=== PATIENT | male | born 1930 | race Caucasian/White ===

== ENCOUNTER 2017-10-21 17:25 | Inpatient (IN) | payer MEDICARE ==
[~2017-10-21] VITALS: Ht 167.6 cm; Wt 95.8 kg
--- NOTE | 2017-10-21 17:39 | ED.ADGEN ---
Past History Past Medical History: Dementia, Depression, Hypertension, Other Adult General Chief Complaint Chief Complaint " They sent me here to get checked out..." HPI HPI Patient is a 86 year old male transfer from [facility] an assisted living [facility], who presents with hx mental status change Pt. recent exacerbation of disruptive behavior, threatening self harm, increased confusion, attempted suicide by stings in PJ and hanging himself. Increase depressed affect. Pt. has hx of sleep apnea, HTN, DM II, Dementia. Pt. primary is Dr. Jennifer Bro. Pt. denies past hx. of. prior PR. Pt. recently had to give of his dog in the [facility] because of dog defecation and urine habits not compatible with [facility] standards. Patient reports is made him very unhappy and sad. No history of falls. No history of immunosuppression. No history of recent travel. No history of recent change in maintenance meds. Review of Systems Review of Systems Patient has no complaints Constitutional: Denies fever or chills [] Eyes: Denies change in visual acuity, redness, or eye pain [] HENT: Denies nasal congestion or sore throat [] Respiratory: Denies cough or shortness of breath [] Cardiovascular: No additional information not addressed in HPI [] GI: Denies abdominal pain, nausea, vomiting, bloody stools or diarrhea [] : Denies dysuria or hematuria [] Musculoskeletal: Denies back pain or joint pain [] Integument: Denies rash or skin lesions [] Neurologic: Denies headache, focal weakness or sensory changes [] Endocrine: Denies polyuria or polydipsia [] All other systems were reviewed and found to be within normal limits, except as documented in this note. Family History Family History Non-contributory Current Medications Current Medications See nursing for home meds Allergies Allergies No known allergies Physical Exam Physical Exam Constitutional: Well developed, well nourished, no acute distress, non-toxic appearance. [] HENT: Normocephalic, atraumatic, bilateral external ears normal, oropharynx moist, no oral exudates, nose normal. Trach scar Eyes: PERRLA, EOMI, conjunctiva normal, no discharge. [] Neck: Normal range of motion, no tenderness, supple, no stridor. [] Cardiovascular: Bradycardic Heart rate , occasionally missed or dropped beat and PAC as per monitor, no murmur [] Lungs & Thorax: Bilateral breath sounds equal at apexes on auscultation [] Abdomen: Bowel sounds normal, soft, no tenderness, no masses, no pulsatile masses. [] Skin: Warm, dry, no erythema, no rash. Contusion or skin ulcer right hancock Back: No tenderness, no CVA tenderness. [] Extremities: No tenderness, no cyanosis, no clubbing, ROM intact, no edema. Arthritic changes. Neurologic: Alert and oriented X 3, normal motor function, normal sensory function and feet, anxious no focal deficits noted. [] Psychologic: Affect normal, judgement, unable to determine at this time, mood depressed. Current Patient Data Vital Signs Vital Signs Date Time Temp Pulse Resp B/P (MAP) Pulse Ox O2 Delivery O2 Flow Rate FiO2 10/21/17 18:39 57 12 166/77 (106) 96 10/21/17 18:09 Room Air Lab Results Laboratory Tests Test 10/21/17 18:02 White Blood Count 3.5 x10^3/uL (4.0-11.0) L Red Blood Count 3.86 x10^6/uL (4.30-5.70) L Hemoglobin 12.6 g/dL (13.0-17.5) L Hematocrit 37.7 % (39.0-53.0) L Mean Corpuscular Volume 98 fL (79-100) Mean Corpuscular Hemoglobin 33 pg (25-35) Mean Corpuscular Hemoglobin Concent 34 g/dL (31-37) Red Cell Distribution Width 14.1 % (11.5-14.5) Platelet Count 80 x10^3/uL (140-400) L Neutrophils (%) (Auto) 60 % (31-73) Lymphocytes (%) (Auto) 22 % (24-48) L Monocytes (%) (Auto) 17 % (0-9) H Eosinophils (%) (Auto) 1 % (0-3) Basophils (%) (Auto) 0 % (0-3) Neutrophils # (Auto) 2.1 x10^3uL (1.8-7.7) Lymphocytes # (Auto) 0.8 x10^3/uL (1.0-4.8) L Monocytes # (Auto) 0.6 x10^3/uL (0.0-1.1) Eosinophils # (Auto) 0.0 x10^3/uL (0.0-0.7) Basophils # (Auto) 0.0 x10^3/uL (0.0-0.2) Platelet Estimate Decreased (ADEQUATE) Prothrombin Time 11.0 SEC (9.4-11.4) Prothrombin Time INR 1.1 (0.9-1.1) PTT 28 SEC (23-33) Sodium Level 147 mmol/L (136-145) H Potassium Level 4.2 mmol/L (3.5-5.1) Chloride Level 110 mmol/L (98-107) H Carbon Dioxide Level 30 mmol/L (21-32) Anion Gap 7 (6-14) Blood Urea Nitrogen 17 mg/dL (8-26) Creatinine 1.3 mg/dL (0.7-1.3) Estimated GFR (Cockcroft-Gault) 52.3 Glucose Level 99 mg/dL (70-99) Calcium Level 8.6 mg/dL (8.5-10.1) Magnesium Level 1.9 mg/dL (1.8-2.4) Creatine Kinase 844 U/L (39-308) H Troponin I Quantitative 0.341 ng/mL (0-0.055) H XE-Rvg-M-Type Natriuretic Peptide 928 pg/mL (0-449) H EKG EKG My interpretation EKG shows a sinus bradycardia with occasional PAC. Sinus rate at 54. Some nonspecific anterior septal changes but no findings acute STEMI of contralateral changes.[] Radiology/Procedures Radiology/Procedures I interpretation of chest x-ray shows no acute cardiopulmonary changes. Degenerative joint changes.[] Course & Med Decision Making Course & Med Decision Making Pertinent Labs and Imaging studies reviewed. (See chart for details). Discussed presentation, testing and treatment plan with Dr. Quinones hospitalist and cardiology.. Patient to be admitted to telemetry tonight with serial troponins. And cardiology consult. Clearing of troponin or establish has stable cardiac presentation he'll be transferred to [facility] under . [] Final Impression Final Impression 1. Mental Status Change 2. Behavior 3. Dementia 4,. Depression 5. Suicidal Ideation 6. Anemia , Leukopenia, Thrombocytopenia- 7. Elevated Trop. 8. Bradycardia Problems: Dragon Disclaimer Dragon Disclaimer This electronic medical record was generated, in whole or in part, using a voice recognition dictation system. BAHMAN MEZA MD Oct 21, 2017 17:39
--- NOTE | 2017-10-21 18:27 | EKG ---
[address] [address] Test Date: 2017-10-21 Test Time: 17:53:15 Pat Name: IVETH GALVAN Department: Room: Gender: M [employer] Crib Attendant: ROJELIO : 1930 Requested By: BAHMAN MEZA Order Number: [id number] Reading MD: Fransisco Samson Measurements Intervals [place] Rate: 54 P: OR: QRS: 23 QRSD: 104 T: 30 QT: 422 QTc: 402 Interpretive Statements SINUS RHYTHM ATRIAL PREMATURE COMPLEXES QRS(T) CONTOUR ABNORMALITY CONSIDER ANTEROSEPTAL MYOCARDIAL DAMAGE POSSIBLY ABNORMAL ECG Electronically Signed On 10-27-2017 14:38:59 RENTAL CAR DELIVERER by Fransisco Samson
[2017-10-21 18:30] LABS: BASO % 0 % (0-3); EOS % 1 % (0-3); HEMATOCRIT 37.7 % (39.0-53.0); HEMOGLOBIN 12.6 g/dL (13.0-17.5); LYMPH # 0.8 x10^3/uL (1.0-4.8); LYMPH % 22 % (24-48); MEAN CORPUSCULAR HEMOGLOBIN 33 pg (25-35); MEAN CORPUSCULAR HGB CONC 34 g/dL (31-37); MEAN CORPUSCULAR VOLUME 98 fL (79-100); MONO # 0.6 x10^3/uL (0.0-1.1); MONO % 17 % (0-9); NEUT # 2.1 x10^3uL (1.8-7.7); NEUT % 60 % (31-73); PLATELET COUNT 80 x10^3/uL (140-400); RED BLOOD COUNT 3.86 x10^6/uL (4.30-5.70); RED CELL DISTRIBUTION WIDTH 14.1 % (11.5-14.5); WHITE BLOOD COUNT 3.5 x10^3/uL (4.0-11.0)
[2017-10-21 18:49] LABS: CALCIUM 8.6 mg/dL (8.5-10.1); CREATININE 1.3 mg/dL (0.7-1.3); GFR 52.3; MAGNESIUM 1.9 mg/dL (1.8-2.4); POTASSIUM 4.2 mmol/L (3.5-5.1)
[2017-10-21] MEDS ORDERED: NITROGLYCERIN OINT 1 GM PACKET. TP ONE (19:15)
[2017-10-21 20:14] VITALS: BP 171/81
[2017-10-21] MEDS ORDERED: FOSI40TA PO (21:13)
[2017-10-21] MEDS ORDERED: GABA600T2 PO (21:13)
[2017-10-21] MEDS ORDERED: GLIP5TAB10 PO (21:13)
[2017-10-21] MEDS ORDERED: DONE10TA7 PO (21:13)
[2017-10-21] MEDS ORDERED: ZOLPIDEM 5 MG TABLET. PO PRN (21:30)
[2017-10-21] MEDS: GABAPENTIN 300 MG CAPSULE. PO SCH (21:39)
[2017-10-21 22:19] LABS: PLT ESTIMATE DECREASED (ADEQUATE)
[2017-10-21 23:01] VITALS: BP 135/63
[2017-10-22 05:02] VITALS: BP 129/67
[2017-10-22 05:02] LABS: BARBITURATES NEG (NEG); BENZODIAZEPINES NEG (NEG); CANNABINOIDS NEG (NEG); COCAINE NEG (NEG); METHADONE NEG (NEG); OPIATES NEG (NEG); PHENCYCLIDINE NEG (NEG)
[2017-10-22 05:03] LABS: BACTERIA,URINE 0 /HPF (0-FEW); BILIRUBIN,URINE NEG (NEG); CLARITY,URINE CLEAR; COLOR,URINE YELLOW; GLUCOSE,URINE NEG (NEG); NITRITE,URINE NEG (NEG); SQUAMOUS EPITHELIAL CELL,UR OCC /LPF; UROBILINOGEN,URINE 0.2 mg/dL (0.2 mg/dL); WBC,URINE OCC /HPF (0-4)
[2017-10-22 05:04] LABS: AMPHETAMINE/METHAMPHETAMINE NEG (NEG)
[2017-10-22] MEDS: NITROGLYCERIN OINT 1 GM PACKET. TP SCH ×3 (05:40→22:00)
[2017-10-22 07:09] LABS: BASO % 0 % (0-3); EOS % 1 % (0-3); HEMATOCRIT 35.5 % (39.0-53.0); HEMOGLOBIN 11.8 g/dL (13.0-17.5); LYMPH % 32 % (24-48); MEAN CORPUSCULAR HEMOGLOBIN 33 pg (25-35); MEAN CORPUSCULAR HGB CONC 33 g/dL (31-37); MEAN CORPUSCULAR VOLUME 98 fL (79-100); MONO # 0.5 x10^3/uL (0.0-1.1); MONO % 18 % (0-9); NEUT # 1.5 x10^3uL (1.8-7.7); NEUT % 49 % (31-73); PLATELET COUNT 72 x10^3/uL (140-400); RED BLOOD COUNT 3.62 x10^6/uL (4.30-5.70); RED CELL DISTRIBUTION WIDTH 14.3 % (11.5-14.5)
[2017-10-22 07:14] LABS: ALBUMIN 2.9 g/dL (3.4-5.0); ALBUMIN/GLOBULIN RATIO 1.2 (1.0-1.7); CREATININE 1.3 mg/dL (0.7-1.3); GFR 52.3; MAGNESIUM 1.8 mg/dL (1.8-2.4); POTASSIUM 4.1 mmol/L (3.5-5.1); TOTAL BILIRUBIN 0.3 mg/dL (0.2-1.0); TOTAL PROTEIN 5.3 g/dL (6.4-8.2)
--- NOTE | 2017-10-22 08:15 | RAD ---
PORTABLE CHEST 1V Clinical Indication: Mental Status Change Comparison: None. Findings: Normal lung volume. No focal consolidations. Normal pulmonary vasculature. No pleural effusion or pneumothorax. The cardiomediastinal silhouette and great vessels are normal. No acute osseous abnormality. Advanced bilateral acromioclavicular and glenohumeral joint arthrosis. IMPRESSION: No acute cardiopulmonary process.
[2017-10-22] MEDS ORDERED: DONEPEZIL HCL 10 MG TABLET PO SCH (09:00)
[2017-10-22] MEDS ORDERED: LISINOPRIL 20 MG TABLET PO SCH (09:00)
[2017-10-22] MEDS ORDERED: FLU VACC QS2017-18 (36MOS+)/PF 0.5 ML SYRINGE. VAX IM ONE (09:00)
[2017-10-22] MEDS: ASPIRIN 81 MG TAB.CHEW PO SCH (09:35)
[2017-10-22] MEDS: glipiZIDE 5 MG TABLET PO SCH ×2 (09:40→20:36)
[2017-10-22 11:21] VITALS: BP 152/70
--- NOTE | 2017-10-22 14:23 | PDOC2 ---
KINGSTONALL[facility] Candy MANAGER RESORT 10/22/17 1423: CONSULT Date of Admission DATE: 10/22/17 TIME: 13:19 Reason for Consult: trop elevation Problem List Problems Medical Problems: (1) Elevated troponin Status: Acute History of Present Illness Patient is a 86 year old male who transferred from [facility] living for [facility] admission. He was evaluated medically in the ED and found to have an elevated troponin so consult was called. Based on the chart history he has been having symptoms of confusion and suicidal ideation. He is currently pleasantly confused and oriented only to self and year. He is unable to give medical history other than saying he had brain surgery in the 50s. He denies any chest pain or discomfort. He denies any dyspnea. He complains of a "hoarse throat" since admission. He denies any palpitations, lightheadedness or presyncope symptoms. Limited medical history obtained from [facility] intake history and ED notes. He had apparently been in the assisted living facility less than 1 month and prior to that was living in his home in [place]. Past Medical History DESTIN, unspecified dementia, diabetes mellitus II, hypertension, hyperlipidemia Past Surgical History He reports remote brain surgery but is unable to articulate why this was done, other surgical history unavailable. Family History non contributory due to age Social History non smoker, ETOH / drug use unknown. Current Medications Current Medications Nitroglycerin (Nitro-Bid Oint) 0.5 inch 1X ONCE TP Last administered on 19:34; Start 10/21/17 at 19:15; Stop 10/21/17 at 19:16; Status DC Aspirin (Children'S Aspirin) 81 mg DAILYWBKFT PO Last administered on 09:35; Start 10/22/17 at 08:00 Nitroglycerin (Nitro-Bid Oint) 0.5 inch Q8HRS TP ; Start 10/22/17 at 06:00 Zolpidem Tartrate (Ambien) 5 mg PRN QHS PRN PO INSOMNIA, MAY REPEAT IN 1HR; Start 10/21/17 at 21:30; Stop 10/22/17 at 07:25; Status DC Olanzapine (ZyPREXA ZYDIS) 2.5 mg PRN Q2HR PRN PO AGITATION/ REPEAT 1X Last administered on 10/21/17 21:39; Start 10/21/17 at 21:30 Donepezil HCl (Aricept) 10 mg DAILY PO Last administered on 10/22/17 09:36; Start 10/22/17 at 09:00 Glipizide (Glucotrol) 2.5 mg BID PO Last administered on 10/22/17 09:40; Start 10/22/17 at 09:00 Lisinopril (Prinivil) 40 mg DAILY PO Last administered on 10/22/17 09:37; Start 10/22/17 at 09:00 Gabapentin (Neurontin) 600 mg QHS PO Last administered on 10/21/17 21:39; Start 10/21/17 at 21:45 Influenza Virus Vaccine Quadrival (Fluarix Quad [id number] Syringe) 0.5 ml ONCE ONCE VAX IM ; Start 10/22/17 at 09:00; Stop 10/22/17 at 09:01; Status DC Active Scripts Active Reported Glipizide 5 Mg Tablet 2.5 Mg PO BID Gabapentin 600 Mg Tablet 600 Mg PO HS Fosinopril Sodium 40 Mg Tablet 40 Mg PO DAILY Donepezil Hcl 10 Mg Tablet 10 Mg PO DAILY Allergies: Coded Allergies: amlodipine (Verified Allergy, Unknown, 10/21/17) fluorouracil (Verified Allergy, Unknown, 10/21/17) iodine (Verified Allergy, Unknown, 10/21/17) lovastatin (Verified Allergy, Unknown, 10/21/17) metoprolol (Verified Allergy, Unknown, 10/21/17) rosuvastatin (Verified Allergy, Unknown, 10/21/17) simvastatin (Verified Allergy, Unknown, 10/21/17) Review of System He denies any complaints. Otherwise as per HPI. General: Alert, Cooperative, No acute distress, Other (oriented x2) HEENT: Atraumatic, EOMI, Mucous membr. moist/pink, Other (left carotid bruit) Lungs: Clear to auscultation Heart: Regular rate, Normal S1, Normal S2, Other (+ systolic murmur) Abdomen: Normal bowel sounds, Soft, No tenderness Extremities: No cyanosis, No edema, Other (palpable bilateral pedal pulses) Neuro: Normal speech, Strength at 5/5 X4 ext Psych/Mental Status: Mood NL, Other (mental status as described above) VITALS Vital Signs Date Time Temp Pulse Resp B/P (MAP) Pulse Ox O2 Delivery O2 Flow Rate FiO2 10/22/17 11:21 98.0 50 20 152/70 (97) 100 Nasal Cannula 2.0 Labs Laboratory Tests Test 10/21/17 18:02 10/21/17 23:59 10/22/17 04:45 10/22/17 06:46 White Blood Count 3.5 x10^3/uL (4.0-11.0) 3.0 x10^3/uL (4.0-11.0) Red Blood Count 3.86 x10^6/uL (4.30-5.70) 3.62 x10^6/uL (4.30-5.70) Hemoglobin 12.6 g/dL (13.0-17.5) 11.8 g/dL (13.0-17.5) Hematocrit 37.7 % (39.0-53.0) 35.5 % (39.0-53.0) Mean Corpuscular Volume 98 fL (79-100) 98 fL (79-100) Mean Corpuscular Hemoglobin 33 pg (25-35) 33 pg (25-35) Mean Corpuscular Hemoglobin Concent 34 g/dL (31-37) 33 g/dL (31-37) Red Cell Distribution Width 14.1 % (11.5-14.5) 14.3 % (11.5-14.5) Platelet Count 80 x10^3/uL (140-400) 72 x10^3/uL (140-400) Neutrophils (%) (Auto) 60 % (31-73) 49 % (31-73) Lymphocytes (%) (Auto) 22 % (24-48) 32 % (24-48) Monocytes (%) (Auto) 17 % (0-9) 18 % (0-9) Eosinophils (%) (Auto) 1 % (0-3) 1 % (0-3) Basophils (%) (Auto) 0 % (0-3) 0 % (0-3) Neutrophils # (Auto) 2.1 x10^3uL (1.8-7.7) 1.5 x10^3uL (1.8-7.7) Lymphocytes # (Auto) 0.8 x10^3/uL (1.0-4.8) 1.0 x10^3/uL (1.0-4.8) Monocytes # (Auto) 0.6 x10^3/uL (0.0-1.1) 0.5 x10^3/uL (0.0-1.1) Eosinophils # (Auto) 0.0 x10^3/uL (0.0-0.7) 0.0 x10^3/uL (0.0-0.7) Basophils # (Auto) 0.0 x10^3/uL (0.0-0.2) 0.0 x10^3/uL (0.0-0.2) Platelet Estimate Decreased (ADEQUATE) Prothrombin Time 11.0 SEC (9.4-11.4) Prothromb Time International Ratio 1.1 (0.9-1.1) Activated Partial Thromboplast Time 28 SEC (23-33) Sodium Level 147 mmol/L (136-145) 146 mmol/L (136-145) Potassium Level 4.2 mmol/L (3.5-5.1) 4.1 mmol/L (3.5-5.1) Chloride Level 110 mmol/L (98-107) 111 mmol/L (98-107) Carbon Dioxide Level 30 mmol/L (21-32) 31 mmol/L (21-32) Anion Gap 7 (6-14) 4 (6-14) Blood Urea Nitrogen 17 mg/dL (8-26) 16 mg/dL (8-26) Creatinine 1.3 mg/dL (0.7-1.3) 1.3 mg/dL (0.7-1.3) Estimated GFR (Cockcroft-Gault) 52.3 52.3 Glucose Level 99 mg/dL (70-99) 111 mg/dL (70-99) Calcium Level 8.6 mg/dL (8.5-10.1) 8.0 mg/dL (8.5-10.1) Magnesium Level 1.9 mg/dL (1.8-2.4) 1.8 mg/dL (1.8-2.4) Creatine Kinase 844 U/L (39-308) 649 U/L (39-308) 551 U/L (39-308) Troponin I Quantitative 0.341 ng/mL (0-0.055) 0.317 ng/mL (0-0.055) 0.243 ng/mL (0-0.055) ME-Gtx-X-Type Natriuretic Peptide 928 pg/mL (0-449) Creatine Kinase MB (Mass) 8.9 ng/mL (0.0-3.6) 5.8 ng/mL (0.0-3.6) Creatine Kinase MB Relative Index 1.4 % (0-4) 1.1 % (0-4) Urine Collection Type Unknown Urine Color Yellow Urine Clarity Clear Urine pH 5.5 Urine Specific [place] 1.020 Urine Protein 30 mg/dl (NEG-TRACE) Urine Glucose (UA) Neg mg/dL (NEG) Urine Ketones (Stick) Neg mg/dL (NEG) Urine Blood Neg (NEG) Urine Nitrite Neg (NEG) Urine Bilirubin Neg (NEG) Urine Urobilinogen Dipstick 0.2 mg/dL (0.2 mg/dL) Urine Leukocyte Esterase Neg (NEG) Urine RBC 1-2 /HPF (0-2) Urine WBC Occ /HPF (0-4) Urine Squamous Epithelial Cells Occ /LPF Urine Bacteria 0 /HPF (0-FEW) Urine Opiates Screen Neg (NEG) Urine Methadone Screen Neg (NEG) Urine Barbiturates Neg (NEG) Urine Phencyclidine Screen Neg (NEG) Urine Amphetamine/Methamphetamine Neg (NEG) Urine Benzodiazepines Screen Neg (NEG) Urine Cocaine Screen Neg (NEG) Urine Cannabinoids Screen Neg (NEG) Urine Ethyl Alcohol Neg (NEG) BUN/Creatinine Ratio 12 (6-20) Total Bilirubin 0.3 mg/dL (0.2-1.0) Aspartate Amino Transf (AST/SGOT) 38 U/L (15-37) Alanine Aminotransferase (ALT/SGPT) 32 U/L (16-63) Alkaline Phosphatase 65 U/L (46-116) Total Protein 5.3 g/dL (6.4-8.2) Albumin 2.9 g/dL (3.4-5.0) Albumin/Globulin Ratio 1.2 (1.0-1.7) Test 10/22/17 07:40 10/22/17 11:29 Glucose (Fingerstick) 103 mg/dL (70-99) 112 mg/dL (70-99) Images EKG - sinus rhythm without acute abnormalities CXR - IMPRESSION: No acute cardiopulmonary process. Assessment/Plan 1. NSTEMI - He is currently asymptomatic. Will request PCP records from [facility] and have asked nursing to touch base with DPOA as to baseline mental status, functionality, and care wishes. Currently would recommend echo to evaluate LV function, medical therapy and supportive care. No beta blockers due to bradycardia. 2. hypertension - Continue home medications. 3. pancytopenia - request hematology records from [facility] prior to starting antiplatelet therapy. 4. hyperlipidemia - check lipids, continue statin 5. diabetes mellitus - as per IM 6. dementia / SI - per Psych. Problems: AZRA CERNA MD 10/22/17 1604: CONSULT Allergies: Coded Allergies: amlodipine (Verified Allergy, Unknown, 10/21/17) fluorouracil (Verified Allergy, Unknown, 10/21/17) iodine (Verified Allergy, Unknown, 10/21/17) lovastatin (Verified Allergy, Unknown, 10/21/17) metoprolol (Verified Allergy, Unknown, 10/21/17) rosuvastatin (Verified Allergy, Unknown, 10/21/17) simvastatin (Verified Allergy, Unknown, 10/21/17) Assessment/Plan Pt. seen and examined. Agree with above CORE CLEANER note. Will obtain echo and if wnl, then supportive care. THanks. Problems: ALLISON ONOFRE APRN Oct 22, 2017 14:23 AZRA CERNA MD Oct 22, 2017 16:04
[2017-10-22 14:47] VITALS: BP 147/67
--- NOTE | 2017-10-22 16:57 | CARD ---
APPROVED REPORT EXAM: Two-dimensional and M-mode echocardiogram with Doppler and color Doppler. Other Information Quality : Average Rhythm : NSR INDICATION Elevated troponin level 2D DIMENSIONS Left Atrium(2D)2.8 (1.6-4.0cm)IVSd1.2 (0.7-1.1cm) Aortic Root(2D)3.4 (2.0-3.7cm)LVDd5.3 (3.9-5.9cm) LVOT Diameter2.1 (1.8-2.4cm)PWd1.3 (0.7-1.1cm) LVDs3.4 (2.5-4.0cm)FS (%) 35.7 % SV87.6 mlLVEF(%)64.7 (>50%) Aortic Valve AoV Peak Michael.262.7cm/sAoV VTI58.3cm AO Peak GR.27.6mmHgLVOT Peak Michael.131.5cm/s LVOT VTI 29.56cmAO Mean GR.17mmHg CAROLINE (VMAX)1.09zh8MSJ (VTI)1.82cm2 AI P 1/2 [id number] Mitral Valve MV E Loctxtle37.5cm/sMV DECEL YEZV275vq MV A Wayavndz89.7cm/sMV ZNA47ql E/A Ratio1.1MV A Eqtrjdrb423op MVA (PHT)4.14cm2 Tricuspid Valve TR P. Xlaaypjt670ah/sRAP FGOWPVEJ7htWr TR Peak Gr.39wtIgXFIZ55onCh LEFT VENTRICLE The left ventricle is normal size. There is borderline to mild concentric left ventricular hypertroph y. Left ventricle systolic function is normal. The Ejection Fraction is 60-65%. There is normal LV se gmental wall motion. The left ventricular diastolic function and filling is normal for age. RIGHT VENTRICLE The right ventricle is normal size. The right ventricular systolic function is normal. ATRIA The left atrium size is normal. The right atrium size is normal. The interatrial septum is intact wit h no evidence for an atrial septal defect or patent foramen ovale as noted on 2-D or Doppler imaging. AORTIC VALVE The aortic valve is moderately calcified. The aortic valve is trileaflet. Doppler and Color Flow reve aled mild aortic regurgitation. Calculated aortic valve area is 1.8 cm2 with maximum pressure gradien t of 27 mmHg and mean pressure gradient of 18 mmHg. Doppler and color-flow analysis revealed mild aor tic stenosis. MITRAL VALVE Mitral annular calcification is mild. There is no mitral valve stenosis. Doppler and Color Flow revea led no mitral valve regurgitation noted. TRICUSPID VALVE The tricuspid valve is normal in structure and function. Doppler and Color Flow revealed mild tricusp id regurgitation. The PA pressure was estimated at 36 mmHg. There is no tricuspid valve stenosis. PULMONIC VALVE The pulmonic valve is not well visualized. Doppler and Color Flow revealed no pulmonic valvular regur gitation. There is no pulmonic valvular stenosis. GREAT VESSELS The aortic root is normal in size. Pulmonary veins not recorded. The IVC is slightly dilated in size and collapses >50% with inspiration. PERICARDIAL EFFUSION There is no evidence of significant pericardial effusion. Critical Notification Critical Value: No <Conclusion> Left ventricle systolic function is normal. The Ejection Fraction is 60-65%. There is normal LV segmental wall motion. Calculated aortic valve area is 1.8 cm2 with maximum pressure gradient of 27 mmHg and mean pressure g radient of 18 mmHg. Doppler and color-flow analysis revealed mild aortic stenosis.
--- NOTE | 2017-10-22 17:31 | HP ---
ADMIT DATE: 10/21/2017 REASON FOR ADMISSION: Elevated troponin, thrombocytopenia, abnormal labs. HISTORY OF PRESENT ILLNESS: This is at the moment pleasant 86-year-old male who knew his birthdate, who was supposed to be [facility]. He came from [facility] where he has been since 10/06/2017. Before that, he was at home in [place]. This is an assisted living facility. Apparently, since he has moved in, he has threatened to harm himself, suicidal ideation. He tried his PJ strings around his neck and wanted to poison himself; in other words, he has severe adjustment problems going into assisted living facility. PAST MEDICAL HISTORY: Obstructive sleep apnea, type 2 diabetes, suspected dementia, hypertension, depression, chronic pain. ALLERGIES: AMLODIPINE, 5-FU, IODINE, LOVASTATIN, METOPROLOL, ROSUVASTATIN and SIMVASTATIN. MEDICATIONS: Reviewed, not clear how long he has been, needs as they were dated 10/06/2017. SOCIAL HISTORY: The patient is a retired stern. Since childhood, he hurt his third finger on the left hand, which was caught in a corn machine, it was repaired. He does not know his history. As far as social goes, he grew up in [place], [place]. He is a of the [employer]. 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 REVIEW OF SYSTEMS: He does not state anything in particular that it is bothering him, but there is something that is bothering him like that. He wants to talk about at length. OBJECTIVE: VITAL SIGNS: Height 66 inches, weight 214 pounds, blood pressure 147/67, pulse 63, respirations 20, O2 sat 100% on 2 liters. GENERAL: At the present time, this is a pleasant elderly gentleman, in no acute distress. He is sitting in bed. His skin is aged with actinic keratosis on the top of his scalp. HEENT: His eyes were clear, evidence of cataract surgery bilaterally. Nose patent. Throat clear. NECK: Supple, without adenopathy. There were no carotid bruits. LUNGS: Clear to auscultation. CARDIOVASCULAR: Slightly irregular rhythm and rate. ABDOMEN: Soft, nontender. EXTREMITIES: Without edema. 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 NEUROLOGIC: He can follow directions. Cranial nerves were intact. He could do avvtqu-pr-bibx, but slow, rapid alternating movement he can do. Photographic Restorer strength is equal and strong. Lower extremities are strong and muscular. Reflexes not checked. LABORATORY DATA: CBC: White blood cell count is 3.0, hemoglobin 11.8, hematocrit 35.5, platelet count 72,000. Troponin initially 0.341; now, it is 0.243. His CK was 844. Blood sugars are okay, it is slightly elevated. Sodium of 147. ASSESSMENT: 1. An 86-year-old male with neurocognitive impairment and suicidal ideation. 2. Actinic keratosis. 3. Mildly elevated CK, questionable etiology. 4. Elevated troponin. The patient does not have any chest pain, Cardiology is seeing. 5. Pancytopenia, questionable etiology. He himself is not aware of any blood disorder and pharmacy queried the medications that are very rare instances. Other labs are pending and we will monitor his labs an additional day, move him close to the nurse's station as he has suicidal ideation, although he does not exhibit any at the present time. FRANCISCO CASTRO DO DR: DIANE/aristides JOB#: [id number] / [id number]
--- NOTE | 2017-10-22 18:43 | PDOC ---
Exam Note: Jose Angel Note: Please also refer to the separate dictated note~for this date of service dictated separately.~Patient seen individually. Discussed the patient with Nursing staff reviewed the chart.~Reviewed interim history and current functioning. Reviewed vital signs,~Labs/ Radiology~and current medications noted below. Continue current treatment with the changes noted in the dictated addendum note Assessment: Vital Signs: Vital Signs Date Time Temp Pulse Resp B/P (MAP) Pulse Ox O2 Delivery O2 Flow Rate FiO2 10/22/17 15:19 63 147/67 10/22/17 14:47 97.8 20 95 Room Air 10/22/17 11:21 2.0 I&O Intake and Output 10/22/17 07:00 Intake Total 400 ml Output Total 600 ml Balance -200 ml Intake Oral 400 ml Output Urine Total 600 ml # Bowel Movements 1 Labs: Laboratory Tests Test 10/21/17 23:59 10/22/17 04:45 10/22/17 06:46 10/22/17 07:40 Creatine Kinase 649 U/L (39-308) H 551 U/L (39-308) H Creatine Kinase MB (Mass) 8.9 ng/mL (0.0-3.6) H 5.8 ng/mL (0.0-3.6) H Creatine Kinase MB Relative Index 1.4 % (0-4) 1.1 % (0-4) Troponin I Quantitative 0.317 ng/mL (0-0.055) H 0.243 ng/mL (0-0.055) H Urine Collection Type Unknown Urine Color Yellow Urine Clarity Clear Urine pH 5.5 Urine Specific [place] 1.020 Urine Protein 30 mg/dl (NEG-TRACE) Urine Glucose (UA) Neg mg/dL (NEG) Urine Ketones (Stick) Neg mg/dL (NEG) Urine Blood Neg (NEG) Urine Nitrite Neg (NEG) Urine Bilirubin Neg (NEG) Urine Urobilinogen Dipstick 0.2 mg/dL (0.2 mg/dL) Urine Leukocyte Esterase Neg (NEG) Urine RBC 1-2 /HPF (0-2) Urine WBC Occ /HPF (0-4) Urine Squamous Epithelial Cells Occ /LPF Urine Bacteria 0 /HPF (0-FEW) Urine Opiates Screen Neg (NEG) Urine Methadone Screen Neg (NEG) Urine Barbiturates Neg (NEG) Urine Phencyclidine Screen Neg (NEG) Urine Amphetamine/Methamphetamine Neg (NEG) Urine Benzodiazepines Screen Neg (NEG) Urine Cocaine Screen Neg (NEG) Urine Cannabinoids Screen Neg (NEG) Urine Ethyl Alcohol Neg (NEG) White Blood Count 3.0 x10^3/uL (4.0-11.0) L Red Blood Count 3.62 x10^6/uL (4.30-5.70) L Hemoglobin 11.8 g/dL (13.0-17.5) L Hematocrit 35.5 % (39.0-53.0) L Mean Corpuscular Volume 98 fL (79-100) Mean Corpuscular Hemoglobin 33 pg (25-35) Mean Corpuscular Hemoglobin Concent 33 g/dL (31-37) Red Cell Distribution Width 14.3 % (11.5-14.5) Platelet Count 72 x10^3/uL (140-400) L Neutrophils (%) (Auto) 49 % (31-73) Lymphocytes (%) (Auto) 32 % (24-48) Monocytes (%) (Auto) 18 % (0-9) H Eosinophils (%) (Auto) 1 % (0-3) Basophils (%) (Auto) 0 % (0-3) Neutrophils # (Auto) 1.5 x10^3uL (1.8-7.7) L Lymphocytes # (Auto) 1.0 x10^3/uL (1.0-4.8) Monocytes # (Auto) 0.5 x10^3/uL (0.0-1.1) Eosinophils # (Auto) 0.0 x10^3/uL (0.0-0.7) Basophils # (Auto) 0.0 x10^3/uL (0.0-0.2) Sodium Level 146 mmol/L (136-145) H Potassium Level 4.1 mmol/L (3.5-5.1) Chloride Level 111 mmol/L (98-107) H Carbon Dioxide Level 31 mmol/L (21-32) Anion Gap 4 (6-14) L Blood Urea Nitrogen 16 mg/dL (8-26) Creatinine 1.3 mg/dL (0.7-1.3) Estimated GFR (Cockcroft-Gault) 52.3 BUN/Creatinine Ratio 12 (6-20) Glucose Level 111 mg/dL (70-99) H Calcium Level 8.0 mg/dL (8.5-10.1) L Magnesium Level 1.8 mg/dL (1.8-2.4) Total Bilirubin 0.3 mg/dL (0.2-1.0) Aspartate Amino Transferase (AST) 38 U/L (15-37) H Alanine Aminotransferase (ALT) 32 U/L (16-63) Alkaline Phosphatase 65 U/L (46-116) Total Protein 5.3 g/dL (6.4-8.2) L Albumin 2.9 g/dL (3.4-5.0) L Albumin/Globulin Ratio 1.2 (1.0-1.7) Glucose (Fingerstick) 103 mg/dL (70-99) H Test 10/22/17 1110/22/17 16:40 Glucose (Fingerstick) 112 mg/dL (70-99) H 110 mg/dL (70-99) H Current Medications: Meds: Current Medications Nitroglycerin (Nitro-Bid Oint) 0.5 inch 1X ONCE TP Last administered on 19:34; Start 10/21/17 at 19:15; Stop 10/21/17 at 19:16; Status DC Aspirin (Children'S Aspirin) 81 mg DAILYWBKFT PO Last administered on 09:35; Start 10/22/17 at 08:00 Nitroglycerin (Nitro-Bid Oint) 0.5 inch Q8HRS TP Last administered on 15:19; Start 10/22/17 at 06:00 Zolpidem Tartrate (Ambien) 5 mg PRN QHS PRN PO INSOMNIA, MAY REPEAT IN 1HR; Start 10/21/17 at 21:30; Stop 10/22/17 at 07:25; Status DC Olanzapine (ZyPREXA ZYDIS) 2.5 mg PRN Q2HR PRN PO AGITATION/ REPEAT 1X Last administered on 10/21/17 21:39; Start 10/21/17 at 21:30 Donepezil HCl (Aricept) 10 mg DAILY PO Last administered on 10/22/17 09:36; Start 10/22/17 at 09:00 Glipizide (Glucotrol) 2.5 mg BID PO Last administered on 10/22/17 09:40; Start 10/22/17 at 09:00 Lisinopril (Prinivil) 40 mg DAILY PO Last administered on 10/22/17 09:37; Start 10/22/17 at 09:00 Gabapentin (Neurontin) 600 mg QHS PO Last administered on 10/21/17 21:39; Start 10/21/17 at 21:45 Influenza Virus Vaccine Quadrival (Fluarix Quad [id number] Syringe) 0.5 ml ONCE ONCE VAX IM ; Start 10/22/17 at 09:00; Stop 10/22/17 at 09:01; Status DC Active Scripts Active Reported Glipizide 5 Mg Tablet 2.5 Mg PO BID Gabapentin 600 Mg Tablet 600 Mg PO HS Fosinopril Sodium 40 Mg Tablet 40 Mg PO DAILY Donepezil Hcl 10 Mg Tablet 10 Mg PO DAILY I have reviewed the current psychotropics carefully including drug interactions. Risk benefit ratio favors no change other than as noted in my dictated progress note. 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
[2017-10-22 20:13] VITALS: BP 108/48
[2017-10-22] MEDS: GABAPENTIN 300 MG CAPSULE. PO SCH (20:37)
[2017-10-23] MEDS: NITROGLYCERIN OINT 1 GM PACKET. TP SCH (04:40)
[2017-10-23 05:20] VITALS: BP 131/65
[2017-10-23 06:35] LABS: CALCIUM 8.8 mg/dL (8.5-10.1); CREATININE 1.2 mg/dL (0.7-1.3); GFR 57.4; MAGNESIUM 1.9 mg/dL (1.8-2.4); POTASSIUM 3.9 mmol/L (3.5-5.1)
[2017-10-23 06:47] LABS: BASO % 0 % (0-3); EOS % 1 % (0-3); HEMATOCRIT 37.1 % (39.0-53.0); HEMOGLOBIN 12.4 g/dL (13.0-17.5); LYMPH # 0.8 x10^3/uL (1.0-4.8); LYMPH % 23 % (24-48); MEAN CORPUSCULAR HEMOGLOBIN 33 pg (25-35); MEAN CORPUSCULAR HGB CONC 34 g/dL (31-37); MEAN CORPUSCULAR VOLUME 98 fL (79-100); MONO # 0.6 x10^3/uL (0.0-1.1); MONO % 18 % (0-9); NEUT # 1.9 x10^3uL (1.8-7.7); NEUT % 58 % (31-73); PLATELET COUNT 76 x10^3/uL (140-400); RED BLOOD COUNT 3.81 x10^6/uL (4.30-5.70); WHITE BLOOD COUNT 3.3 x10^3/uL (4.0-11.0)
[2017-10-23] MEDS: ASPIRIN 81 MG TAB.CHEW PO SCH (08:00)
[2017-10-23] MEDS: glipiZIDE 5 MG TABLET PO SCH (09:00)
[2017-10-23 09:26] VITALS: BP 168/60
[2017-10-23] MEDS ORDERED: ISOSORBIDE MONONITRATE ER 30 MG TAB.ER.24H PO SCH (10:00)
[2017-10-23 11:06] VITALS: BP 164/75
--- NOTE | 2017-10-23 11:45 | PDOC ---
PROGRESS NOTES Diagnosis Problem Problems Medical Problems: (1) Elevated troponin Status: Acute Assessment Problems Medical Problems: (1) Elevated troponin Status: Acute 1. NSTEMI - He remains asymptomatic. Continue aspirin, statin and change nitro paste to Imdur. LV function and wall motion normal by echo. Currently poor candidate for invasive ischemic evaluation due to mental status. Continue supportive care at this time. 2. hypertension - Continue home medications. Add nitrates. 3. pancytopenia - suggest periodic monitoring of platelet function and follow up outpatient with hematology. 4. hyperlipidemia - continue statin 5. diabetes mellitus - as per IM 6. dementia / SI - Ok for transfer up to [facility] from cardiac perspective. Will sign off. Please call with any questions or concerns. Problems: Subjective Confused, refusing medications as he believes he has already taken them. no chest pain or dyspnea. Objective Vital Signs Date Time Temp Pulse Resp B/P (MAP) Pulse Ox O2 Delivery O2 Flow Rate FiO2 10/23/17 11:06 98.1 84 20 164/75 (104) 95 Room Air 10/22/17 19:15 2.0 Intake and Output 10/23/17 06:59 Intake Total 1720 ml Output Total 2 ml Balance 1718 ml Intake Oral 1720 ml Output Urine Total 2 ml # Voids 3 Abdomen: Normal bowel sounds, Soft, No tenderness Heart: Regular rate, Normal S1, Normal S2 Extremities: No cyanosis, Normal pulses, Other (1+ edema) General: Alert, No acute distress, Other (uncooperative with medications) HEENT: Mucous membr. moist/pink Lungs: Clear to auscultation Neuro: Strength at 5/5 X4 ext Psych/Mental Status: Other (confused, intermittently angry) Review of Relevant I have reviewed the following items alem (where applicable) has been applied. Labs Laboratory Tests Test 10/21/17 18:02 10/21/17 20:20 10/21/17 23:59 10/22/17 04:45 White Blood Count 3.5 x10^3/uL (4.0-11.0) Red Blood Count 3.86 x10^6/uL (4.30-5.70) Hemoglobin 12.6 g/dL (13.0-17.5) Hematocrit 37.7 % (39.0-53.0) Mean Corpuscular Volume 98 fL (79-100) Mean Corpuscular Hemoglobin 33 pg (25-35) Mean Corpuscular Hemoglobin Concent 34 g/dL (31-37) Red Cell Distribution Width 14.1 % (11.5-14.5) Platelet Count 80 x10^3/uL (140-400) Neutrophils (%) (Auto) 60 % (31-73) Lymphocytes (%) (Auto) 22 % (24-48) Monocytes (%) (Auto) 17 % (0-9) Eosinophils (%) (Auto) 1 % (0-3) Basophils (%) (Auto) 0 % (0-3) Neutrophils # (Auto) 2.1 x10^3uL (1.8-7.7) Lymphocytes # (Auto) 0.8 x10^3/uL (1.0-4.8) Monocytes # (Auto) 0.6 x10^3/uL (0.0-1.1) Eosinophils # (Auto) 0.0 x10^3/uL (0.0-0.7) Basophils # (Auto) 0.0 x10^3/uL (0.0-0.2) Platelet Estimate Decreased (ADEQUATE) Prothrombin Time 11.0 SEC (9.4-11.4) Prothromb Time International Ratio 1.1 (0.9-1.1) Activated Partial Thromboplast Time 28 SEC (23-33) Sodium Level 147 mmol/L (136-145) Potassium Level 4.2 mmol/L (3.5-5.1) Chloride Level 110 mmol/L (98-107) Carbon Dioxide Level 30 mmol/L (21-32) Anion Gap 7 (6-14) Blood Urea Nitrogen 17 mg/dL (8-26) Creatinine 1.3 mg/dL (0.7-1.3) Estimated GFR (Cockcroft-Gault) 52.3 Glucose Level 99 mg/dL (70-99) Calcium Level 8.6 mg/dL (8.5-10.1) Magnesium Level 1.9 mg/dL (1.8-2.4) Creatine Kinase 844 U/L (39-308) 649 U/L (39-308) Troponin I Quantitative 0.341 ng/mL (0-0.055) 0.317 ng/mL (0-0.055) MH-Xcg-A-Type Natriuretic Peptide 928 pg/mL (0-449) Nasal Screen MRSA (PCR) Negative (Negative) Creatine Kinase MB (Mass) 8.9 ng/mL (0.0-3.6) Creatine Kinase MB Relative Index 1.4 % (0-4) Urine Collection Type Unknown Urine Color Yellow Urine Clarity Clear Urine pH 5.5 Urine Specific [place] 1.020 Urine Protein 30 mg/dl (NEG-TRACE) Urine Glucose (UA) Neg mg/dL (NEG) Urine Ketones (Stick) Neg mg/dL (NEG) Urine Blood Neg (NEG) Urine Nitrite Neg (NEG) Urine Bilirubin Neg (NEG) Urine Urobilinogen Dipstick 0.2 mg/dL (0.2 mg/dL) Urine Leukocyte Esterase Neg (NEG) Urine RBC 1-2 /HPF (0-2) Urine WBC Occ /HPF (0-4) Urine Squamous Epithelial Cells Occ /LPF Urine Bacteria 0 /HPF (0-FEW) Urine Opiates Screen Neg (NEG) Urine Methadone Screen Neg (NEG) Urine Barbiturates Neg (NEG) Urine Phencyclidine Screen Neg (NEG) Urine Amphetamine/Methamphetamine Neg (NEG) Urine Benzodiazepines Screen Neg (NEG) Urine Cocaine Screen Neg (NEG) Urine Cannabinoids Screen Neg (NEG) Urine Ethyl Alcohol Neg (NEG) Test 10/22/17 06:46 10/22/17 07:40 10/22/17 11:29 10/22/17 16:40 White Blood Count 3.0 x10^3/uL (4.0-11.0) Red Blood Count 3.62 x10^6/uL (4.30-5.70) Hemoglobin 11.8 g/dL (13.0-17.5) Hematocrit 35.5 % (39.0-53.0) Mean Corpuscular Volume 98 fL (79-100) Mean Corpuscular Hemoglobin 33 pg (25-35) Mean Corpuscular Hemoglobin Concent 33 g/dL (31-37) Red Cell Distribution Width 14.3 % (11.5-14.5) Platelet Count 72 x10^3/uL (140-400) Neutrophils (%) (Auto) 49 % (31-73) Lymphocytes (%) (Auto) 32 % (24-48) Monocytes (%) (Auto) 18 % (0-9) Eosinophils (%) (Auto) 1 % (0-3) Basophils (%) (Auto) 0 % (0-3) Neutrophils # (Auto) 1.5 x10^3uL (1.8-7.7) Lymphocytes # (Auto) 1.0 x10^3/uL (1.0-4.8) Monocytes # (Auto) 0.5 x10^3/uL (0.0-1.1) Eosinophils # (Auto) 0.0 x10^3/uL (0.0-0.7) Basophils # (Auto) 0.0 x10^3/uL (0.0-0.2) Sodium Level 146 mmol/L (136-145) Potassium Level 4.1 mmol/L (3.5-5.1) Chloride Level 111 mmol/L (98-107) Carbon Dioxide Level 31 mmol/L (21-32) Anion Gap 4 (6-14) Blood Urea Nitrogen 16 mg/dL (8-26) Creatinine 1.3 mg/dL (0.7-1.3) Estimated GFR (Cockcroft-Gault) 52.3 BUN/Creatinine Ratio 12 (6-20) Glucose Level 111 mg/dL (70-99) Calcium Level 8.0 mg/dL (8.5-10.1) Magnesium Level 1.8 mg/dL (1.8-2.4) Total Bilirubin 0.3 mg/dL (0.2-1.0) Aspartate Amino Transf (AST/SGOT) 38 U/L (15-37) Alanine Aminotransferase (ALT/SGPT) 32 U/L (16-63) Alkaline Phosphatase 65 U/L (46-116) Creatine Kinase 551 U/L (39-308) Creatine Kinase MB (Mass) 5.8 ng/mL (0.0-3.6) Creatine Kinase MB Relative Index 1.1 % (0-4) Troponin I Quantitative 0.243 ng/mL (0-0.055) Total Protein 5.3 g/dL (6.4-8.2) Albumin 2.9 g/dL (3.4-5.0) Albumin/Globulin Ratio 1.2 (1.0-1.7) Glucose (Fingerstick) 103 mg/dL (70-99) 112 mg/dL (70-99) 110 mg/dL (70-99) Test 10/22/17 20:48 10/23/17 06:04 10/23/17 07:55 Glucose (Fingerstick) 114 mg/dL (70-99) 100 mg/dL (70-99) White Blood Count 3.3 x10^3/uL (4.0-11.0) Red Blood Count 3.81 x10^6/uL (4.30-5.70) Hemoglobin 12.4 g/dL (13.0-17.5) Hematocrit 37.1 % (39.0-53.0) Mean Corpuscular Volume 98 fL (79-100) Mean Corpuscular Hemoglobin 33 pg (25-35) Mean Corpuscular Hemoglobin Concent 34 g/dL (31-37) Red Cell Distribution Width 14.0 % (11.5-14.5) Platelet Count 76 x10^3/uL (140-400) Neutrophils (%) (Auto) 58 % (31-73) Lymphocytes (%) (Auto) 23 % (24-48) Monocytes (%) (Auto) 18 % (0-9) Eosinophils (%) (Auto) 1 % (0-3) Basophils (%) (Auto) 0 % (0-3) Neutrophils # (Auto) 1.9 x10^3uL (1.8-7.7) Lymphocytes # (Auto) 0.8 x10^3/uL (1.0-4.8) Monocytes # (Auto) 0.6 x10^3/uL (0.0-1.1) Eosinophils # (Auto) 0.0 x10^3/uL (0.0-0.7) Basophils # (Auto) 0.0 x10^3/uL (0.0-0.2) Sodium Level 146 mmol/L (136-145) Potassium Level 3.9 mmol/L (3.5-5.1) Chloride Level 111 mmol/L (98-107) Carbon Dioxide Level 29 mmol/L (21-32) Anion Gap 6 (6-14) Blood Urea Nitrogen 19 mg/dL (8-26) Creatinine 1.2 mg/dL (0.7-1.3) Estimated GFR (Cockcroft-Gault) 57.4 Glucose Level 106 mg/dL (70-99) Calcium Level 8.8 mg/dL (8.5-10.1) Magnesium Level 1.9 mg/dL (1.8-2.4) Medications Current Medications Nitroglycerin (Nitro-Bid Oint) 0.5 inch 1X ONCE TP Last administered on 19:34; Start 10/21/17 at 19:15; Stop 10/21/17 at 19:16; Status DC Aspirin (Children'S Aspirin) 81 mg DAILYWBKFT PO Last administered on 09:35; Start 10/22/17 at 08:00 Nitroglycerin (Nitro-Bid Oint) 0.5 inch Q8HRS TP Last administered on 15:19; Start 10/22/17 at 06:00; Stop 10/23/17 at 09:50; Status DC Zolpidem Tartrate (Ambien) 5 mg PRN QHS PRN PO INSOMNIA, MAY REPEAT IN 1HR; Start 10/21/17 at 21:30; Stop 10/22/17 at 07:25; Status DC Olanzapine (ZyPREXA ZYDIS) 2.5 mg PRN Q2HR PRN PO AGITATION/ REPEAT 1X Last administered on 10/21/17 21:39; Start 10/21/17 at 21:30 Donepezil HCl (Aricept) 10 mg DAILY PO Last administered on 10/22/17 09:36; Start 10/22/17 at 09:00; Stop 10/23/17 at 09:50; Status DC Glipizide (Glucotrol) 2.5 mg BID PO Last administered on 10/22/17 20:36; Start 10/22/17 at 09:00 Lisinopril (Prinivil) 40 mg DAILY PO Last administered on 10/22/17 09:37; Start 10/22/17 at 09:00; Stop 10/23/17 at 09:50; Status DC Gabapentin (Neurontin) 600 mg QHS PO Last administered on 10/22/17 20:37; Start 10/21/17 at 21:45 Influenza Virus Vaccine Quadrival (Fluarix Quad [id number] Syringe) 0.5 ml ONCE ONCE VAX IM ; Start 10/22/17 at 09:00; Stop 10/22/17 at 09:01; Status DC Olanzapine (ZyPREXA ZYDIS) 2.5 mg PRN Q4HRS PRN PO PSYCHOSIS/AGITATION Last administered on 10/23/17 03:13; Start 10/22/17 at 19:45 Donepezil HCl (Aricept) 10 mg HS PO ; Start 10/23/17 at 21:00 Lisinopril (Prinivil) 40 mg HS PO ; Start 10/23/17 at 21:00 Isosorbide Mononitrate (Imdur) 30 mg DAILY PO Last administered on 10/23/17 10:18; Start 10/23/17 at 10:00 Influenza Virus Vaccine Quadrival (Fluarix Quad [id number] Syringe) 0.5 ml ONCE ONCE VAX IM ; Start 10/24/17 at 09:00; Stop 10/24/17 at 09:01 Diclofenac Sodium (Voltaren) 1 deven QID TP ; Start 10/23/17 at 13:00 Active Scripts Active Reported Glipizide 5 Mg Tablet 2.5 Mg PO BID Gabapentin 600 Mg Tablet 600 Mg PO HS Fosinopril Sodium 40 Mg Tablet 40 Mg PO DAILY Donepezil Hcl 10 Mg Tablet 10 Mg PO DAILY Vitals/I & O Vital Sign - Last 24 Hours 10/22/17 10/22/17 10/22/17 10/22/17 14:47 15:19 19:15 20:13 Temp 97.8 97.6 Pulse 63 63 62 Resp 20 20 B/P (MAP) 147/67 (93) 147/67 108/48 (68) Pulse Ox 95 97 O2 Delivery Room Air Nasal Cannula Room Air O2 Flow Rate 2.0 10/23/17 10/23/17 10/23/17 10/23/17 05:20 08:00 09:26 10:18 Temp 98.0 Pulse 61 89 89 Resp 18 B/P (MAP) 131/65 (87) 168/60 (96) 168/60 Pulse Ox 95 O2 Delivery Nasal Cannula Room Air 10/23/17 11:06 Temp 98.1 Pulse 84 Resp 20 B/P (MAP) 164/75 (104) Pulse Ox 95 O2 Delivery Room Air Intake and Output 10/22/17 10/22/17 10/23/17 14:59 22:59 06:59 Intake Total 480 ml 760 ml 480 ml Output Total 2 ml Balance 480 ml 760 ml 478 ml ALLISON ONOFRE SURGERY CONSULTANT Oct 23, 2017 11:45
[2017-10-23] MEDS ORDERED: DICLOFENAC SODIUM 1% TOPICAL GEL 100GM TUBE. TP SCH (13:00)
[2017-10-23] MEDS ORDERED: OLAN2.5T3 PO ×2 (13:52)
[2017-10-23] MEDS ORDERED: NITR1OIN TD (13:52)
[2017-10-23] MEDS ORDERED: ASPI-612 PO (13:52)
[2017-10-23] MEDS ORDERED: GLIP5TAB10 PO (13:52)
--- NOTE | 2017-10-23 13:54 | EKG ---
[address] [address] Test Date: 2017-10-22 Test Time: 06:56:29 Pat Name: IVETH GALVAN Department: Room: 109 A Gender: Roller [employer] Supervisor: : [id number] Requested By: FRANCISCO CASTRO Order Number: [id number] Reading MD: Fransisco Samson Measurements Intervals [place] Rate: P: CO: QRS: QRSD: T: QT: QTc: Interpretive Statements No previous ECG available for comparison Electronically Signed On 10-27-2017 16:41:27 [employer] by Fransisco Samson
[2017-10-23 15:00] VITALS: BP 127/56
[2017-10-23] MEDS ORDERED: DONEPEZIL HCL 10 MG TABLET PO SCH (21:00)
[2017-10-23] MEDS ORDERED: LISINOPRIL 20 MG TABLET PO SCH (21:00)
--- NOTE | 2017-10-24 00:50 | CONS ---
DATE OF CONSULTATION: 10/23/2017 HISTORY OF PRESENT ILLNESS: This is an 86-year-old gentleman from [facility] where he has been since 10/06/2017. Also, has been living out in [place]. In any case, the patient has problems with some suicidal ideation and threatening to harm himself. Apparently, he tried to poison himself, in other words, he has had severe adjustment problems trying to go to assisted living. He wants to leave and kill himself. PAST MEDICAL HISTORY: Obstructive sleep apnea, type 2 diabetes, suspected dementia, hypertension, depression and chronic pain. ALLERGIES: NORVASC, 5-FU, IODINE, METOPROLOL, SIMVASTATIN, ROSUVASTATIN and METOPROLOL. SOCIAL HISTORY: Retired stern. He is a . Denies smoking, alcohol or drug use. FAMILY HISTORY: Noncontributory. SOCIAL HISTORY: The patient has lost two wives and very suspicious and paranoid of the medical profession. SURGICAL HISTORY: Brain tumor 30-40 years ago. REVIEW OF SYSTEMS: The patient really denies most everything as far as and he denies chest pain, shortness breath, abdominal pain. Denies any nausea, vomiting, melena, hematochezia or hematemesis. Neurologically intact. HOME MEDICATIONS: Include that of Aricept 10 mg daily, lisinopril for blood pressure 40 mg daily, gabapentin 600 mg daily, glipizide 2.5 mg b.i.d. PHYSICAL EXAMINATION: GENERAL: This is a white male, well-developed, well-nourished. VITAL SIGNS: Blood pressure 160/60, respiratory rate 18, pulse 90, afebrile. HEENT: The patient's head was atraumatic, normocephalic. Eyes: PERRLA without jaundice. Mouth and throat were normal. NECK: Supple without JVD or thyromegaly. LUNGS: Diminished throughout, but clear. Poor movement of air. CARDIOVASCULAR: Regular sinus rhythm. EXTREMITIES: The patient has multiple degenerative changes noted to his fingers and previous surgery to his third finger, right hand. No clubbing, cyanosis. Marked hypertrophy and swelling to the knees and has severe degenerative arthritis, has to use a walker there. ABDOMEN: Soft and protuberant, nontender. NEUROLOGIC: Alert, but confused. His content of speech is usually of getting out of the hospital, not trusting doctors as they have killed two of his wives and son-in-law's daughter. In any case, a little bit confused there. LABORATORY DATA: Hemoglobin 12 and 37. White count slightly low at 3.3. His platelet counts have been steady around 80,000, but steady, shows no signs of bleeding. Chemistries were basically all within normal limits. Blood sugars are slightly elevated, but other than that, urine was good. Toxicology negative for other materials and his MRSA is negative. The patient apparently also had elevated troponin levels. IMPRESSION AND PLAN: He has been evaluated by Cardiology for his elevated troponin, here with non-STEMI, depression, severe with suicidal ideation, some paranoia, dementia, hypertension, pancytopenia, hyperlipidemia, type 2 diabetes, morbid obesity, dementia, severe degenerative arthritis of the knees. ASHLEY POLLARD MD DR: WESTON/aristides JOB#: [id number] / [id number]
[2017-10-24] MEDS ORDERED: FLU VACC QS2017-18 (36MOS+)/PF 0.5 ML SYRINGE. VAX IM ONE (09:00)
== END 2017-10-23 15:30 | DRG 281 ==
LOC: ER 17:25 → 1 SOUTH 18:45
PROVIDERS: ADMIT Family Medicine; ATTEND Family Medicine
DX: I21.4 Non-ST elevation (NSTEMI) myocardial infarction (principal); D61.818 Other pancytopenia; R45.851 Suicidal ideations; E66.01 Morbid (severe) obesity due to excess calories; F22 Delusional disorders; F33.9 Major depressive disorder, recurrent, unspecified; E11.9 Type 2 diabetes mellitus without complications; E78.5 Hyperlipidemia, unspecified; F01.50 Vascular dementia, unspecified severity, without behavioral disturbance, psychotic disturbance, mood disturbance, and anxiety; F02.80 Dementia in other diseases classified elsewhere, unspecified severity, without behavioral disturbance, psychotic disturbance, mood disturbance, and anxiety; F41.9 Anxiety disorder, unspecified; G30.9 Alzheimer's disease, unspecified; G47.33 Obstructive sleep apnea (adult) (pediatric); I10 Essential (primary) hypertension; L57.0 Actinic keratosis; M17.0 Bilateral primary osteoarthritis of knee; G89.29 Other chronic pain; Z88.6 Allergy status to analgesic agent; Z88.1 Allergy status to other antibiotic agents; Z88.8 Allergy status to other drugs, medicaments and biological substances; Z68.34 Body mass index [BMI] 34.0-34.9, adult
CPT/HCPCS: 36415; 71010; 80048; 80053; 80307; 81001; 82550; 82553; 82947; 83735; 83880; 84484; 85025; 85610; 85730; 87641; 90686; 93005; 93306; G0479

== ENCOUNTER 2017-10-23 12:46 | Inpatient (IN) | payer MEDICARE ==
[~2017-10-23] VITALS: Ht 167.6 cm; Wt 95.7 kg
[~2017-10-23 12:46] MED LIST: DONE10TA7 PO; FOSI40TA PO; GABA600T2 PO; GLIP5TAB10 PO
[2017-10-23] MEDS ORDERED: ASPI-612 PO (13:52)
[2017-10-23] MEDS ORDERED: OLAN2.5T3 PO ×2 (13:52)
[2017-10-23] MEDS ORDERED: NITR1OIN TD (13:52)
[2017-10-23] MEDS ORDERED: GLIP5TAB10 PO (13:52)
[2017-10-23] MEDS ORDERED: ACETAMINOPHEN 325 MG TABLET PO PRN (16:30)
[2017-10-23] MEDS ORDERED: MAGNESIUM HYDROXIDE 2,400 MG/30 ML ORAL.SUSP. PO PRN (16:30)
[2017-10-23] MEDS ORDERED: METHYL SALICYLATE/MENTHOL TOPICAL OINTMENT 29GM TUBE. TP PRN (16:30)
[2017-10-23] MEDS ORDERED: MAG HYDROX/AL HYDROX/SIMETH 30 ML ORAL.SUSP PO PRN (16:30)
--- NOTE | 2017-10-23 18:35 | PDOC ---
Exam Note: Jose Angel Note: Please also refer to the separate dictated note~for this date of service dictated separately.~Patient seen individually. Discussed the patient with Nursing staff reviewed the chart.~Reviewed interim history and current functioning. Reviewed vital signs,~Labs/ Radiology~and current medications noted below. Continue current treatment with the changes noted in the dictated addendum note Current Medications: Meds: Current Medications Acetaminophen (Tylenol) 650 mg PRN Q6HRS PRN PO PAIN / TEMP; Start 10/23/17 at 16:30 Multi-Ingredient Ointment (Analgesic [place]) 1 deven PRN QID PRN TP MUSCLE PAIN; Start 10/23/17 at 16:30 Al Hydroxide/Mg Hydroxide (Mylanta Plus Xs) 15 ml PRN AFTMEALHC PRN PO DYSPEPSIA; Start 10/23/17 at 16:30 Magnesium Hydroxide (Milk Of Magnesia) 2,400 mg PRN QHS PRN PO CONSTIPATION; Start 10/23/17 at 16:30 Aspirin (Aspirin Enteric Coated) 81 mg DAILYWBKFT PO ; Start 10/24/17 at 08:00 Donepezil HCl (Aricept) 10 mg HS PO ; Start 10/23/17 at 21:00 Glipizide (Glucotrol) 2.5 mg BID PO ; Start 10/23/17 at 21:00 Olanzapine (ZyPREXA) 2.5 mg PRN Q2HR PRN PO PSYCHOSIS; Start 10/23/17 at 16:30 Lisinopril (Prinivil) 40 mg HS PO ; Start 10/23/17 at 21:00 Gabapentin (Neurontin) 600 mg HS PO ; Start 10/23/17 at 21:00 Active Scripts Active Reported Zyprexa (Olanzapine) 2.5 Mg Tablet 2.5 Mg PO PRN Q2HR PRN MDD 7.5 MG/24hrs MAX DOSE 7.5MG/24HRS Dissolve in mouth Max 15mg/24hrs Aspirin Ec (Aspirin) 81 Mg Tablet.dr 1 Tab PO DAILY Glipizide 5 Mg Tablet 2.5 Mg PO BID Gabapentin 600 Mg Tablet 600 Mg PO HS Fosinopril Sodium 40 Mg Tablet 40 Mg PO DAILY Donepezil Hcl 10 Mg Tablet 10 Mg PO DAILY I have reviewed the current psychotropics carefully including drug interactions. Risk benefit ratio favors no change other than as noted in my dictated progress note. Diagnosis: Problems: (1) Dementia with behavioral disturbance (2) Mental status change (3) Dementia in Alzheimer's disease with depression (4) Dementia, vascular, with delusions (5) Major depressive disorder, recurrent episode (6) Anxiety disorder PATI CORCORAN MD Oct 23, 2017 18:35
[2017-10-23] MEDS: OLANZapine 2.5 MG TABLET PO PRN (19:35)
--- NOTE | 2017-10-23 20:02 | PDOC ---
Exam Note: Jose Angel Note: Please also refer to the separate dictated note~for this date of service dictated separately.~Patient seen individually. Discussed the patient with Nursing staff reviewed the chart.~Reviewed interim history and current functioning. Reviewed vital signs,~Labs/ Radiology~and current medications noted below. Continue current treatment with the changes noted in the dictated addendum note Assessment: Labs: Laboratory Tests Test 10/23/17 19:27 Glucose (Fingerstick) 177 mg/dL (70-99) H Current Medications: Meds: Current Medications Acetaminophen (Tylenol) 650 mg PRN Q6HRS PRN PO PAIN / TEMP; Start 10/23/17 at 16:30 Multi-Ingredient Ointment (Analgesic [place]) 1 deven PRN QID PRN TP MUSCLE PAIN; Start 10/23/17 at 16:30 Al Hydroxide/Mg Hydroxide (Mylanta Plus Xs) 15 ml PRN AFTMEALHC PRN PO DYSPEPSIA; Start 10/23/17 at 16:30 Magnesium Hydroxide (Milk Of Magnesia) 2,400 mg PRN QHS PRN PO CONSTIPATION; Start 10/23/17 at 16:30 Aspirin (Aspirin Enteric Coated) 81 mg DAILYWBKFT PO ; Start 10/24/17 at 08:00 Donepezil HCl (Aricept) 10 mg HS PO ; Start 10/23/17 at 21:00 Glipizide (Glucotrol) 2.5 mg BID PO ; Start 10/23/17 at 21:00 Olanzapine (ZyPREXA) 2.5 mg PRN Q2HR PRN PO PSYCHOSIS Last administered on t 19:35; Start 10/23/17 at 16:30 Lisinopril (Prinivil) 40 mg HS PO ; Start 10/23/17 at 21:00 Gabapentin (Neurontin) 600 mg HS PO ; Start 10/23/17 at 21:00 Active Scripts Active Reported Zyprexa (Olanzapine) 2.5 Mg Tablet 2.5 Mg PO PRN Q2HR PRN MDD 7.5 MG/24hrs MAX DOSE 7.5MG/24HRS Dissolve in mouth Max 15mg/24hrs Aspirin Ec (Aspirin) 81 Mg Tablet.dr 1 Tab PO DAILY Glipizide 5 Mg Tablet 2.5 Mg PO BID Gabapentin 600 Mg Tablet 600 Mg PO HS Fosinopril Sodium 40 Mg Tablet 40 Mg PO DAILY Donepezil Hcl 10 Mg Tablet 10 Mg PO DAILY I have reviewed the current psychotropics carefully including drug interactions. Risk benefit ratio favors no change other than as noted in my dictated progress note. Diagnosis: Problems: (1) Anxiety disorder (2) Major depressive disorder, recurrent episode (3) Mental status change (4) Dementia, vascular, with delusions (5) Dementia with behavioral disturbance (6) Dementia in Alzheimer's disease with depression PATI CORCORAN MD Oct 23, 2017 20:02
[2017-10-23] MEDS: LISINOPRIL 20 MG TABLET PO SCH (22:13)
[2017-10-23] MEDS: GABAPENTIN 300 MG CAPSULE. PO SCH (22:13)
[2017-10-23] MEDS: DONEPEZIL HCL 10 MG TABLET PO SCH (22:13)
[2017-10-23] MEDS: glipiZIDE 5 MG TABLET PO SCH (22:13)
[2017-10-24 03:19] LABS: HEMOGLOBIN A1C 5.9 % (4.8-5.6); T3 TOTAL 79 ng/dL (71-180); THYROXINE 6.8 ug/dL (4.5-12.0)
[2017-10-24] MEDS: glipiZIDE 5 MG TABLET PO SCH ×2 (08:08→19:34)
[2017-10-24] MEDS: ASPIRIN ENTERIC COATED 81 MG TABLET.DR. PO SCH (08:08)
--- NOTE | 2017-10-24 08:23 | PDOC1 ---
History of Present Illness Reason for Visit: Dementia History of Present Illness Pt originally sent to [facility] for eval in the [facility] unit due to threatening to harm self, trying to poison himsefl, refusing meds, etc. He was found to have an elevated troponin, and was admitted to the medical floor. Troponins trended down, pt did not have chest pain, and echo was normal. He was then sent up to [facility] unit yesterday afternoon. Pt seen on rounds and d/w nursing this morning. He is currently waiting for breakfast. He is a poor historian, but has no complaints. Per nursing he has only required one PRN for behaviors since admission. Chief Complaint: Behaviors Allergies: Coded Allergies: amlodipine (Verified Allergy, Intermediate, 10/23/17) fluorouracil (Verified Allergy, Intermediate, 10/23/17) iodine (Verified Allergy, Intermediate, 10/23/17) lovastatin (Verified Allergy, Intermediate, 10/23/17) metoprolol (Verified Allergy, Intermediate, 10/23/17) rosuvastatin (Verified Allergy, Intermediate, 10/23/17) simvastatin (Verified Allergy, Intermediate, 10/23/17) Past Medical History Cardiac: HTN Pulmonary: Other (Sleep apnea) INTEGRATIVE MEDICINE PHYSICIAN: Dementia Endocrine: Diabetes (Type 2) Past Surgical History: Other (brain surgery reported by pt) Family History: No pertinent hx Past Social History Smoke: No Alcohol: none Drugs: None Review of Systems Review Of Systems ROS unobtainable/unreliable due to pt's dementia. Allergies: Coded Allergies: amlodipine (Verified Allergy, Intermediate, 10/23/17) fluorouracil (Verified Allergy, Intermediate, 10/23/17) iodine (Verified Allergy, Intermediate, 10/23/17) lovastatin (Verified Allergy, Intermediate, 10/23/17) metoprolol (Verified Allergy, Intermediate, 10/23/17) rosuvastatin (Verified Allergy, Intermediate, 10/23/17) simvastatin (Verified Allergy, Intermediate, 10/23/17) Medications Current Medications Acetaminophen (Tylenol) 650 mg PRN Q6HRS PRN PO PAIN / TEMP; Start 10/23/17 at 16:30 Multi-Ingredient Ointment (Analgesic [place]) 1 deven PRN QID PRN TP MUSCLE PAIN; Start 10/23/17 at 16:30 Al Hydroxide/Mg Hydroxide (Mylanta Plus Xs) 15 ml PRN AFTMEALHC PRN PO DYSPEPSIA; Start 10/23/17 at 16:30 Magnesium Hydroxide (Milk Of Magnesia) 2,400 mg PRN QHS PRN PO CONSTIPATION; Start 10/23/17 at 16:30 Aspirin (Aspirin Enteric Coated) 81 mg DAILYWBKFT PO Last administered on 08:08; Start 10/24/17 at 08:00 Donepezil HCl (Aricept) 10 mg HS PO Last administered on 10/23/17 22:13; Start 10/23/17 at 21:00 Glipizide (Glucotrol) 2.5 mg BID PO Last administered on 10/24/17 08:08; Start 10/23/17 at 21:00 Olanzapine (ZyPREXA) 2.5 mg PRN Q2HR PRN PO PSYCHOSIS Last administered on 19:35; Start 10/23/17 at 16:30 Lisinopril (Prinivil) 40 mg HS PO Last administered on 10/23/17 22:13; Start 10/23/17 at 21:00 Gabapentin (Neurontin) 600 mg HS PO Last administered on 10/23/17 22:13; Start 10/23/17 at 21:00 Active Scripts Active Reported Zyprexa (Olanzapine) 2.5 Mg Tablet 2.5 Mg PO PRN Q2HR PRN MDD 7.5 MG/24hrs MAX DOSE 7.5MG/24HRS Dissolve in mouth Max 15mg/24hrs Aspirin Ec (Aspirin) 81 Mg Tablet.dr 1 Tab PO DAILY Glipizide 5 Mg Tablet 2.5 Mg PO BID Gabapentin 600 Mg Tablet 600 Mg PO HS Fosinopril Sodium 40 Mg Tablet 40 Mg PO DAILY Donepezil Hcl 10 Mg Tablet 10 Mg PO DAILY Exam Vital Signs Vital Signs Date Time Temp Pulse Resp B/P (MAP) Pulse Ox O2 Delivery O2 Flow Rate FiO2 10/23/17 22:13 127/56 General Appearance: Alert, Cooperative, No acute distress HEENT: PERRLA, EOMI, Mucous membr. moist/pink, Other (Scattered scabs and AK's on top of scalp. No brown lesions noted.) Respiratory: Clear to auscultation, Normal air movement Heart: Regular rate, Normal S1, Normal S2, No murmurs Abdominal: Soft, No tenderness, No hepatospenomegaly, No masses Extremities: Normal pulses, No tenderness/swelling Skin: No rashes Neuro: Normal tone, Cranial nerves 3-12 NL Psych/Mental Status: Other (Confused, no agitation) Assessment/Plan Assessment/Plan 1. Dememtia w/ behavioral disturbances: Per Dr. Hernandez. 2. DM2: A1c normal. Continue accuchecks daily. No change in meds. 3. HTN: Stable, no change in meds. 4. Hx of elevated troponin: Workup negative. 5. DVT proph: Pt fully ambulatory. No need for pharmacologic prophylaxis. 6. DESTIN: Treat as he does at home. COURSE Allergies Coded Allergies Type Severity Reaction Last Updated Verified amlodipine Allergy Intermediate 10/23/17 Yes fluorouracil Allergy Intermediate 10/23/17 Yes iodine Allergy Intermediate 10/23/17 Yes lovastatin Allergy Intermediate 10/23/17 Yes metoprolol Allergy Intermediate 10/23/17 Yes rosuvastatin Allergy Intermediate 10/23/17 Yes simvastatin Allergy Intermediate 10/23/17 Yes Laboratory Tests Test 10/23/17 19:27 10/24/17 07:05 Glucose (Fingerstick) 177 mg/dL (70-99) 88 mg/dL (70-99) Current Medications Medications (Trade) Dose Ordered Sig/Chelo Route PRN Reason Start Time Stop Time Status Last Admin Dose Admin Acetaminophen (Tylenol) 650 mg PRN Q6HRS PRN PO PAIN / TEMP 10/23/17 16:30 Multi-Ingredient Ointment (Analgesic [place]) 1 deven PRN QID PRN TP MUSCLE PAIN 10/23/17 16:30 Al Hydroxide/Mg Hydroxide (Mylanta Plus Xs) 15 ml PRN AFTMEALHC PRN PO DYSPEPSIA 10/23/17 16:30 Magnesium Hydroxide (Milk Of Magnesia) 2,400 mg PRN QHS PRN PO CONSTIPATION 10/23/17 16:30 Aspirin (Aspirin Enteric Coated) 81 mg DAILYWBKFT PO 10/24/17 08:00 10/24/17 08:08 Donepezil HCl (Aricept) 10 mg HS PO 10/23/17 21:00 10/23/17 22:13 Glipizide (Glucotrol) 2.5 mg BID PO 10/23/17 21:00 10/24/17 08:08 Olanzapine (ZyPREXA) 2.5 mg PRN Q2HR PRN PO PSYCHOSIS 10/23/17 16:30 10/23/17 19:35 Lisinopril (Prinivil) 40 mg HS PO 10/23/17 21:00 10/23/17 22:13 Gabapentin (Neurontin) 600 mg HS PO 10/23/17 21:00 10/23/17 22:13 I & O 10/24/17 00:00 Intake Total 360 ml Balance 360 ml Vital Signs Date Time Temp Pulse Resp B/P (MAP) Pulse Ox O2 Delivery O2 Flow Rate FiO2 10/23/17 22:13 127/56 KIMBERLEE GONZALEZ MD Oct 24, 2017 08:23
--- NOTE | 2017-10-24 10:00 | CONS ---
DATE OF CONSULTATION: 10/23/2017 HISTORY OF PRESENT ILLNESS: This late entry 10/22/2017 covers elements not covered in my initial note of 10/22/2017. I met with the patient evening of 10/22/2017 in room 10[facility] for a psychiatric consult requested by Dr. Quinones on account of the patient's worsening dementia, agitation, delusions. He was initially referred to the [facility] from [facility], presented to the ER at [place] for medical clearance prior to psychiatric hospitalization, was found to have elevated troponin, admitted to [address] [place] [address] and I have been asked to consult from a psychiatric standpoint. At the halfway, patient has been threatening to harm himself. He is confused, actively suicidal, tied his pajamas strings around his neck, wanting to poison himself. He was kept on one-on-one status to help him adjust with little relief resulting in the initial referral. CHIEF COMPLAINT: "I am going there, where are you coming. We are there together. I am not sure." The patient is quite disorganized, hyperverbal, distractible. HISTORY OF PRESENT ILLNESS: The patient has a history of dementia, Alzheimer's vascular type. He has been residing at the above halfway for sometime, but over the past several days, he has been getting increasingly agitated, restless, made the suicide attempt as noted above, had to be placed on one-on-one status. Behaviors were deemed dangerous resulting in this referral and then admitted to [address] [place] [address] Medical/Surgical floor. No clear history of bipolar disorder or homicidal ideation. He has appeared quite psychotic at times. PAST PSYCHIATRIC HISTORY: As above. MEDICAL HISTORY: Elevated troponin, obstructive sleep apnea, diabetes mellitus type 2, hypertension. ALLERGIES: TO IODINE, AMLODIPINE, LOVASTATIN, METOPROLOL, ROSUVASTATIN, SIMVASTATIN, AND FLUOROURACIL. REFERRING PHYSICIAN: Dr. Jona Morales. FAMILY HISTORY: Noncontributory. SOCIAL HISTORY: No alcohol, drug abuse, physical, sexual or elder abuse history is noted. Not known to be a perpetrator. MENTAL STATUS EXAMINATION: The patient was seen individually evening of 10/22/2017. He is oriented to himself, extremely hyperverbal, disorganized in his speech. Insight, judgment, recent and remote memory, attention, concentration, fund of knowledge poor, consistent with his diagnosis. IMPRESSION: Major neurocognitive disorder, Alzheimer, vascular with depression, delusion, behavioral disturbance, anxiety disorder unspecified, impulse control disorder unspecified. Rest as above. PLAN: I have reviewed the patient's current psychotropics. We will keep these unchanged till he is medically stable and then to transfer him to [facility] for psychiatric stabilization. Dr. Quinones, thank you for the opportunity to participate in your patient's care. We will follow with you. PATI CORCORAN MD DR: JUAQUIN/aristides JOB#: [id number] / [id number]
[2017-10-24 14:48] LABS: THYROID STIM HORMONE (TSH) 2.084 uIU/mL (0.358-3.740)
--- NOTE | 2017-10-24 14:56 | HP ---
ADMIT DATE: 10/23/2017 PSYCHIATRIC ADMISSION HISTORY/EVALUATION This late entry date of service 10/23/2017 covers elements, not covered in my initial note of 10/23/2017. IDENTIFYING DATA: The patient is an 86-year-old male referred to us from [facility] at [facility] by Dr. Quinones after he was medically stabilized for his raised troponin, which was detected when he was presented to the Emergency Room at [facility] from [facility], referred by his primary care physician for psychiatric admission to the [facility] on account of suicidal ideation after the patient tied up with string of his pajama pants around his neck. He was depressed, hopeless, worthless, extremely confused, refusing medications, disruptive, agitated. He had failed outpatient psychiatric interventions, referred for inpatient psychiatric stabilization. Again, as he presented to the ER, troponin was elevated. He was admitted to the medical floor. I did see him there for a psychiatric consultation, once medically stabilized, he presents to us. CHIEF COMPLAINT: "I have got to say many things. I don't know where, but we are there together." The patient is extremely hyperverbal, distractible, confused in his wheelchair, up and down the hallway, constantly moving, talking." HISTORY OF PRESENT ILLNESS: The patient has a history of dementia, Alzheimer's vascular type. He is residing at the above intermediate for some time. Over the past several days, behaviors have been worsening. He has been more agitated, depressed, irritable, labile, suicidal after he tied the pajama strings around his neck. No clear symptoms of bipolar disorder, but this will have to be inquired further as the hospitalization progresses. He has been paranoid, delusional. PAST PSYCHIATRIC HISTORY: As above. MEDICAL HISTORY: Raised troponin, now stable; history of diabetes mellitus, hyperlipidemia, hypertension, osteoarthritis, neuropathy, BPH, chronic kidney disease, cataracts. SURGICAL HISTORY: TURP. He also has low blood counts. Accu-Cheks a.c. and h.s. DIET: Regular, ADA. CODE STATUS: Full. Takes his medications hidden, ambulates with a walker. UA was negative on 10/21/2017. CURRENT PSYCHOTROPICS: MRAD was reviewed. FAMILY HISTORY: Noncontributory. SOCIAL HISTORY: No alcohol, drug abuse, physical, sexual or elder abuse history is noted. Not known to be a perpetrator. MENTAL STATUS EXAMINATION: The patient was seen individually evening of 10/23/2017. He is in his wheelchair, constantly moving, confused, hyperverbal. Insight, judgment, recent and remote memory, attention, concentration, fund of knowledge poor consistent with his diagnoses. IMPRESSION: Major neurocognitive disorder, Alzheimer, vascular with depression, delusion, behavioral disturbance; anxiety disorder, unspecified; impulse control disorder, unspecified. Rest diagnoses unchanged as noted above. PLAN: Admit to geropsychiatry unit at [facility]. I will see the patient daily individually from a psychiatric standpoint, medical followup per Dr. Quinones/Dr. Silverman. Continue the patient on his current psychotropics, observe baseline, then adjust as clinically indicated. He may need adjustment in treatment on Depakote as a mood stabilizer. We will have to get further historical information to see if anything consistent with bipolar disorder is evident in his past history. Again, we will make all those decisions after baseline assessment. MAN Nehemias CORCORAN MD DR: JUAQUIN/aristides JOB#: [id number] / [id number]
[2017-10-24] MEDS: OLANZapine 2.5 MG TABLET PO PRN (15:05)
[2017-10-24 15:51] VITALS: BP 181/85
[2017-10-24] MEDS: hydrOXYzine HCL 25 MG TABLET PO PRN (17:32)
[2017-10-24] MEDS ORDERED: traZODone 50 MG TABLET. PO PRN (19:00)
[2017-10-24] MEDS: DONEPEZIL HCL 10 MG TABLET PO SCH (19:33)
[2017-10-24] MEDS: GABAPENTIN 300 MG CAPSULE. PO SCH (19:34)
[2017-10-24] MEDS: LISINOPRIL 20 MG TABLET PO SCH (19:34)
[2017-10-24] MEDS: OLANZapine 5 MG TABLET PO PRN (19:36)
--- NOTE | 2017-10-24 20:23 | PDOC ---
Exam Note: Jose Angel Note: Please also refer to the separate dictated note~for this date of service dictated separately.~Patient seen individually. Discussed the patient with Nursing staff reviewed the chart.~Reviewed interim history and current functioning. Reviewed vital signs,~Labs/ Radiology~and current medications noted below. Continue current treatment with the changes noted in the dictated addendum note Assessment: Vital Signs: Vital Signs Date Time Temp Pulse Resp B/P (MAP) Pulse Ox O2 Delivery O2 Flow Rate FiO2 10/24/17 19:34 77 181/85 10/24/17 15:51 98.2 20 100 I&O Intake and Output 10/24/17 07:00 Intake Total 360 ml Balance 360 ml Intake Oral 360 ml Labs: Laboratory Tests Test 10/24/17 07:05 10/24/17 16:17 10/24/17 19:06 Glucose (Fingerstick) 88 mg/dL (70-99) 101 mg/dL (70-99) H 201 mg/dL (70-99) H Current Medications: Meds: Current Medications Acetaminophen (Tylenol) 650 mg PRN Q6HRS PRN PO PAIN / TEMP; Start 10/23/17 at 16:30 Multi-Ingredient Ointment (Analgesic [place]) 1 deven PRN QID PRN TP MUSCLE PAIN; Start 10/23/17 at 16:30 Al Hydroxide/Mg Hydroxide (Mylanta Plus Xs) 15 ml PRN AFTMEALHC PRN PO DYSPEPSIA; Start 10/23/17 at 16:30 Magnesium Hydroxide (Milk Of Magnesia) 2,400 mg PRN QHS PRN PO CONSTIPATION; Start 10/23/17 at 16:30 Aspirin (Aspirin Enteric Coated) 81 mg DAILYWBKFT PO Last administered on 08:08; Start 10/24/17 at 08:00 Donepezil HCl (Aricept) 10 mg HS PO Last administered on 10/24/17 19:33; Start 10/23/17 at 21:00 Glipizide (Glucotrol) 2.5 mg BID PO Last administered on 10/24/17 19:34; Start 10/23/17 at 21:00 Olanzapine (ZyPREXA) 2.5 mg PRN Q2HR PRN PO PSYCHOSIS Last administered on 10/24 15:05; Start 10/23/17 at 16:30; Stop 10/24/17 at 19:10; Status DC Lisinopril (Prinivil) 40 mg HS PO Last administered on 10/24/17 19:34; Start 10/23/17 at 21:00 Gabapentin (Neurontin) 600 mg HS PO Last administered on 10/24/17 19:34; Start 10/23/17 at 21:00 Hydroxyzine HCl (Atarax) 25 mg PRN Q2HR PRN PO agitation Last administered on 10/24/17 17:32; Start 10/24/17 at 17:00 Divalproex Sodium (Depakote Sprinkles) 125 mg TID@0900,1400,1700 PO ; Start 10/25/17 at 09:00 Trazodone HCl (Desyrel) 50 mg QHS PO Last administered on 10/24/17 19:36; Start 10/24/17 at 21:00 Trazodone HCl (Desyrel) 50 mg PRN QHS PRN PO insomnia ; Start 10/24/17 at 19:00 Olanzapine (ZyPREXA) 5 mg PRN Q2HR PRN PO PSYCHOSIS Last administered on 19:36; Start 10/24/17 at 19:15 Active Scripts Active Reported Zyprexa (Olanzapine) 2.5 Mg Tablet 2.5 Mg PO PRN Q2HR PRN MDD 7.5 MG/24hrs MAX DOSE 7.5MG/24HRS Dissolve in mouth Max 15mg/24hrs Aspirin Ec (Aspirin) 81 Mg Tablet.dr 1 Tab PO DAILY Glipizide 5 Mg Tablet 2.5 Mg PO BID Gabapentin 600 Mg Tablet 600 Mg PO HS Fosinopril Sodium 40 Mg Tablet 40 Mg PO DAILY Donepezil Hcl 10 Mg Tablet 10 Mg PO DAILY I have reviewed the current psychotropics carefully including drug interactions. Risk benefit ratio favors no change other than as noted in my dictated progress note. Diagnosis: Problems: (1) Anxiety disorder (2) Major depressive disorder, recurrent episode (3) Mental status change (4) Dementia, vascular, with delusions (5) Dementia with behavioral disturbance (6) Dementia in Alzheimer's disease with depression PATI CORCORAN MD Oct 24, 2017 20:23
[2017-10-24] MEDS ORDERED: traZODone 50 MG TABLET. PO SCH (21:00)
[2017-10-25] MEDS: OLANZapine 5 MG TABLET PO PRN ×2 (02:50→22:54)
[2017-10-25] MEDS: glipiZIDE 5 MG TABLET PO SCH ×2 (08:24→20:26)
[2017-10-25] MEDS: ASPIRIN ENTERIC COATED 81 MG TABLET.DR. PO SCH (08:25)
[2017-10-25] MEDS: DIVALPROEX 125 MG CAP.SPRINK PO SCH ×3 (08:26→17:08)
[2017-10-25] MEDS: hydrOXYzine HCL 25 MG TABLET PO PRN ×3 (11:30→22:54)
[2017-10-25 16:29] VITALS: BP 117/64
[2017-10-25] MEDS ORDERED: traZODone 50 MG TABLET. PO PRN ×2 (18:45)
[2017-10-25] MEDS ORDERED: traZODone 100 MG TABLET. PO PRN (18:45)
[2017-10-25] MEDS: DONEPEZIL HCL 10 MG TABLET PO SCH (20:24)
[2017-10-25] MEDS: GABAPENTIN 300 MG CAPSULE. PO SCH (20:25)
[2017-10-25] MEDS: LISINOPRIL 20 MG TABLET PO SCH (20:25)
[2017-10-25] MEDS ORDERED: traZODone 100 MG TABLET. PO SCH (21:00)
--- NOTE | 2017-10-25 21:48 | PDOC ---
Exam Note: Jose Angel Note: Please also refer to the separate dictated note~for this date of service dictated separately.~Patient seen individually. Discussed the patient with Nursing staff reviewed the chart.~Reviewed interim history and current functioning. Reviewed vital signs,~Labs/ Radiology~and current medications noted below. Continue current treatment with the changes noted in the dictated addendum note Assessment: Vital Signs: Vital Signs Date Time Temp Pulse Resp B/P (MAP) Pulse Ox O2 Delivery O2 Flow Rate FiO2 10/25/17 20:25 76 117/64 10/25/17 16:29 98.3 16 98 0.0 I&O Intake and Output 10/25/17 07:00 Intake Total 1200 ml Balance 1200 ml Intake Oral 1200 ml Labs: Laboratory Tests Test 10/25/17 07:18 10/25/17 11:55 10/25/17 16:54 Glucose (Fingerstick) 98 mg/dL (70-99) 134 mg/dL (70-99) H 151 mg/dL (70-99) H Current Medications: Meds: Current Medications Acetaminophen (Tylenol) 650 mg PRN Q6HRS PRN PO PAIN / TEMP Last administered on 10/25/17 11:31; Start 10/23/17 at 16:30 Multi-Ingredient Ointment (Analgesic [place]) 1 deven PRN QID PRN TP MUSCLE PAIN; Start 10/23/17 at 16:30 Al Hydroxide/Mg Hydroxide (Mylanta Plus Xs) 15 ml PRN AFTMEALHC PRN PO DYSPEPSIA; Start 10/23/17 at 16:30 Magnesium Hydroxide (Milk Of Magnesia) 2,400 mg PRN QHS PRN PO CONSTIPATION; Start 10/23/17 at 16:30 Aspirin (Aspirin Enteric Coated) 81 mg DAILYWBKFT PO Last administered on 08:25; Start 10/24/17 at 08:00 Donepezil HCl (Aricept) 10 mg HS PO Last administered on 10/25/17 20:24; Start 10/23/17 at 21:00 Glipizide (Glucotrol) 2.5 mg BID PO Last administered on 10/25/17 20:26; Start 10/23/17 at 21:00 Olanzapine (ZyPREXA) 2.5 mg PRN Q2HR PRN PO PSYCHOSIS Last administered on 10/24 15:05; Start 10/23/17 at 16:30; Stop 10/24/17 at 19:10; Status DC Lisinopril (Prinivil) 40 mg HS PO Last administered on 10/25/17 20:25; Start 10/23/17 at 21:00 Gabapentin (Neurontin) 600 mg HS PO Last administered on 10/25/17 20:25; Start 10/23/17 at 21:00 Hydroxyzine HCl (Atarax) 25 mg PRN Q2HR PRN PO agitation Last administered on 10/25/17 20:25; Start 10/24/17 at 17:00 Divalproex Sodium (Depakote Sprinkles) 125 mg TID@0900,1400,1700 PO Last administered on 10/25/17 17:08; Start 10/25/17 at 09:00 Trazodone HCl (Desyrel) 50 mg QHS PO Last administered on 10/24/17 19:36; Start 10/24/17 at 21:00; Stop 10/25/17 at 18:42; Status DC Trazodone HCl (Desyrel) 50 mg PRN QHS PRN PO insomnia Last administered on 02:46; Start 10/24/17 at 19:00; Stop 10/25/17 at 18:41; Status DC Olanzapine (ZyPREXA) 5 mg PRN Q2HR PRN PO PSYCHOSIS Last administered on 02:50; Start 10/24/17 at 19:15 Trazodone HCl (Desyrel) 100 mg PRN QHS PRN PO insomnia ; Start 10/25/17 at 18: 45; Status UNV Trazodone HCl (Desyrel) 100 mg QHS PRN PO INSOMNIA Last administered on 21:34; Start 10/25/17 at 18:45 Trazodone HCl (Desyrel) 100 mg PRN QHS PRN PO insomnia ; Start 10/25/17 at 18: 45; Status UNV Trazodone HCl (Desyrel) 100 mg QHS PO Last administered on 10/25/17 20:24; Start 10/25/17 at 21:00 Active Scripts Active Reported Zyprexa (Olanzapine) 2.5 Mg Tablet 2.5 Mg PO PRN Q2HR PRN MDD 7.5 MG/24hrs MAX DOSE 7.5MG/24HRS Dissolve in mouth Max 15mg/24hrs Aspirin Ec (Aspirin) 81 Mg Tablet. 1 Tab PO DAILY Glipizide 5 Mg Tablet 2.5 Mg PO BID Gabapentin 600 Mg Tablet 600 Mg PO HS Fosinopril Sodium 40 Mg Tablet 40 Mg PO DAILY Donepezil Hcl 10 Mg Tablet 10 Mg PO DAILY I have reviewed the current psychotropics carefully including drug interactions. Risk benefit ratio favors no change other than as noted in my dictated progress note. Diagnosis: Problems: (1) Anxiety disorder (2) Major depressive disorder, recurrent episode (3) Mental status change (4) Dementia, vascular, with delusions (5) Dementia with behavioral disturbance (6) Dementia in Alzheimer's disease with depression PATI CORCORAN MD Oct 25, 2017 21:48
[2017-10-26 05:53] VITALS: BP 172/83
[2017-10-26] MEDS ORDERED: ACET325T9 PO (06:38)
[2017-10-26] MEDS ORDERED: DIVA125C PO (06:41)
[2017-10-26] MEDS ORDERED: MAG355OR17 PO (06:42)
[2017-10-26] MEDS ORDERED: METH29OI TP (06:43)
[2017-10-26] MEDS ORDERED: MAGN2400 PO (06:43)
[2017-10-26] MEDS ORDERED: HYDR25TA PO (06:44)
[2017-10-26] MEDS ORDERED: TRAZ-90 PO ×2 (06:45)
[2017-10-26 06:56] LABS: BASO % 1 % (0-3); EOS % 1 % (0-3); HEMATOCRIT 40.1 % (39.0-53.0); HEMOGLOBIN 13.4 g/dL (13.0-17.5); LYMPH # 0.8 x10^3/uL (1.0-4.8); LYMPH % 27 % (24-48); MEAN CORPUSCULAR HEMOGLOBIN 32 pg (25-35); MEAN CORPUSCULAR HGB CONC 33 g/dL (31-37); MEAN CORPUSCULAR VOLUME 97 fL (79-100); MONO # 0.6 x10^3/uL (0.0-1.1); MONO % 20 % (0-9); NEUT # 1.5 x10^3uL (1.8-7.7); NEUT % 51 % (31-73); PLATELET COUNT 81 x10^3/uL (140-400); RED BLOOD COUNT 4.14 x10^6/uL (4.30-5.70); RED CELL DISTRIBUTION WIDTH 13.8 % (11.5-14.5); WHITE BLOOD COUNT 2.9 x10^3/uL (4.0-11.0)
[2017-10-26 07:08] LABS: ALBUMIN 3.1 g/dL (3.4-5.0); CREATININE 1.5 mg/dL (0.7-1.3); GFR 44.4; POTASSIUM 4.3 mmol/L (3.5-5.1); TOTAL BILIRUBIN 0.6 mg/dL (0.2-1.0); TOTAL PROTEIN 6.2 g/dL (6.4-8.2)
--- NOTE | 2017-10-26 20:29 | PDOC ---
Exam Note: Jose Angel Note: Please also refer to the separate dictated note~for this date of service dictated separately.~Patient seen individually. Discussed the patient with Nursing staff reviewed the chart.~Reviewed interim history and current functioning. Reviewed vital signs,~Labs/ Radiology~and current medications noted below. Continue current treatment with the changes noted in the dictated addendum note Assessment: Vital Signs: Vital Signs Date Time Temp Pulse Resp B/P (MAP) Pulse Ox O2 Delivery O2 Flow Rate FiO2 10/26/17 05:53 97.2 63 20 172/83 (112) 94 10/25/17 16:29 0.0 I&O Intake and Output 10/26/17 07:00 Intake Total 1080 ml Balance 1080 ml Intake Oral 1080 ml # Bowel Movements 1 Labs: Laboratory Tests Test 10/26/17 06:47 White Blood Count 2.9 x10^3/uL (4.0-11.0) L Red Blood Count 4.14 x10^6/uL (4.30-5.70) L Hemoglobin 13.4 g/dL (13.0-17.5) Hematocrit 40.1 % (39.0-53.0) Mean Corpuscular Volume 97 fL (79-100) Mean Corpuscular Hemoglobin 32 pg (25-35) Mean Corpuscular Hemoglobin Concent 33 g/dL (31-37) Red Cell Distribution Width 13.8 % (11.5-14.5) Platelet Count 81 x10^3/uL (140-400) L Neutrophils (%) (Auto) 51 % (31-73) Lymphocytes (%) (Auto) 27 % (24-48) Monocytes (%) (Auto) 20 % (0-9) H Eosinophils (%) (Auto) 1 % (0-3) Basophils (%) (Auto) 1 % (0-3) Neutrophils # (Auto) 1.5 x10^3uL (1.8-7.7) L Lymphocytes # (Auto) 0.8 x10^3/uL (1.0-4.8) L Monocytes # (Auto) 0.6 x10^3/uL (0.0-1.1) Eosinophils # (Auto) 0.0 x10^3/uL (0.0-0.7) Basophils # (Auto) 0.0 x10^3/uL (0.0-0.2) Prothrombin Time 11.4 SEC (9.4-11.4) Prothrombin Time INR 1.1 (0.9-1.1) PTT 27 SEC (23-33) Sodium Level 146 mmol/L (136-145) H Potassium Level 4.3 mmol/L (3.5-5.1) Chloride Level 109 mmol/L (98-107) H Carbon Dioxide Level 32 mmol/L (21-32) Anion Gap 5 (6-14) L Blood Urea Nitrogen 26 mg/dL (8-26) Creatinine 1.5 mg/dL (0.7-1.3) H Estimated GFR (Cockcroft-Gault) 44.4 BUN/Creatinine Ratio 17 (6-20) Glucose Level 126 mg/dL (70-99) H Calcium Level 9.0 mg/dL (8.5-10.1) Total Bilirubin 0.6 mg/dL (0.2-1.0) Aspartate Amino Transferase (AST) 26 U/L (15-37) Alanine Aminotransferase (ALT) 32 U/L (16-63) Alkaline Phosphatase 77 U/L (46-116) Total Protein 6.2 g/dL (6.4-8.2) L Albumin 3.1 g/dL (3.4-5.0) L Albumin/Globulin Ratio 1.0 (1.0-1.7) Current Medications: Meds: Current Medications Acetaminophen (Tylenol) 650 mg PRN Q6HRS PRN PO PAIN / TEMP Last administered on 10/25/17t 11:31; Start 10/23/17 at 16:30; Stop 10/26/17 at 07:10; Status DC Multi-Ingredient Ointment (Analgesic [place]) 1 jose PRN QID PRN TP MUSCLE PAIN; Start 10/23/17 at 16:30; Stop 10/26/17 at 07:10; Status DC Al Hydroxide/Mg Hydroxide (Mylanta Plus Xs) 15 ml PRN AFTMEALHC PRN PO DYSPEPSIA; Start 10/23/17 at 16:30; Stop 10/26/17 at 07:10; Status DC Magnesium Hydroxide (Milk Of Magnesia) 2,400 mg PRN QHS PRN PO CONSTIPATION; Start 10/23/17 at 16:30; Stop 10/26/17 at 07:10; Status DC Aspirin (Aspirin Enteric Coated) 81 mg DAILYWBKFT PO Last administered on 08:25; Start 10/24/17 at 08:00; Stop 10/26/17 at 07:10; Status DC Donepezil HCl (Aricept) 10 mg HS PO Last administered on 10/25/17 20:24; Start 10/23/17 at 21:00; Stop 10/26/17 at 07:10; Status DC Glipizide (Glucotrol) 2.5 mg BID PO Last administered on 10/25/17 20:26; Start 10/23/17 at 21:00; Stop 10/26/17 at 07:10; Status DC Olanzapine (ZyPREXA) 2.5 mg PRN Q2HR PRN PO PSYCHOSIS Last administered on 10/24 15:05; Start 10/23/17 at 16:30; Stop 10/24/17 at 19:10; Status DC Lisinopril (Prinivil) 40 mg HS PO Last administered on 10/25/17 20:25; Start 10/23/17 at 21:00; Stop 10/26/17 at 07:10; Status DC Gabapentin (Neurontin) 600 mg HS PO Last administered on 10/25/17 20:25; Start 10/23/17 at 21:00; Stop 10/26/17 at 07:10; Status DC Hydroxyzine HCl (Atarax) 25 mg PRN Q2HR PRN PO agitation Last administered on 10/25/17 22:54; Start 10/24/17 at 17:00; Stop 10/26/17 at 07:10; Status DC Divalproex Sodium (Depakote Sprinkles) 125 mg TID@0900,1400,1700 PO Last administered on 10/25/17 17:08; Start 10/25/17 at 09:00; Stop 10/26/17 at 07:10 ; Status DC Trazodone HCl (Desyrel) 50 mg QHS PO Last administered on 10/24/17 19:36; Start 10/24/17 at 21:00; Stop 10/25/17 at 18:42; Status DC Trazodone HCl (Desyrel) 50 mg PRN QHS PRN PO insomnia Last administered on 02:46; Start 10/24/17 at 19:00; Stop 10/25/17 at 18:41; Status DC Olanzapine (ZyPREXA) 5 mg PRN Q2HR PRN PO PSYCHOSIS Last administered on 22:54; Start 10/24/17 at 19:15; Stop 10/26/17 at 07:10; Status DC Trazodone HCl (Desyrel) 100 mg PRN QHS PRN PO insomnia ; Start 10/25/17 at 18: 45; Status UNV Trazodone HCl (Desyrel) 100 mg QHS PRN PO INSOMNIA Last administered on 21:34; Start 10/25/17 at 18:45; Stop 10/26/17 at 07:10; Status DC Trazodone HCl (Desyrel) 100 mg PRN QHS PRN PO insomnia ; Start 10/25/17 at 18: 45; Status UNV Trazodone HCl (Desyrel) 100 mg QHS PO Last administered on 10/25/17 20:24; Start 10/25/17 at 21:00; Stop 10/26/17 at 07:10; Status DC Active Scripts Active Reported Trazodone Hcl 100 Mg Tablet 100 Mg PO PRN QHS PRN Trazodone Hcl 100 Mg Tablet 100 Mg PO QHS Hydroxyzine Hcl 25 Mg Tablet 25 Mg PO PRN Q2HR PRN Analgesic [place] (Methyl Salicylate/Menthol) 28 Gm Oint...g. 1 Jose TP PRN QID PRN Milk Of Magnesia (Magnesium Hydroxide) 2,400 Mg/10 Ml Oral.susp 2,400 Mg PO PRN QHS PRN Advanced Antacid Liquid (Mag Hydrox/Al Hydrox/Simeth) 355 Ml Oral.susp 15 Ml PO PRN AFTMEALHC PRN Depakote Sprinkle (Divalproex Sodium) 125 Mg Cap.sprink 125 Mg PO TID @0900,1400 ,1700 Tylenol (Acetaminophen) 325 Mg Tablet 650 Mg PO PRN Q6HRS PRN Zyprexa (Olanzapine) 2.5 Mg Tablet 5 Mg PO PRN Q2HR PRN MDD 15mg/24 hours MAX DOSE 15MG/24HRS Dissolve in mouth Max 15mg/24hrs Aspirin Ec (Aspirin) 81 Mg Tablet. 1 Tab PO DAILY Glipizide 5 Mg Tablet 2.5 Mg PO BID Gabapentin 600 Mg Tablet 600 Mg PO HS Fosinopril Sodium 40 Mg Tablet 40 Mg PO DAILY Donepezil Hcl 10 Mg Tablet 10 Mg PO HS I have reviewed the current psychotropics carefully including drug interactions. Risk benefit ratio favors no change other than as noted in my dictated progress note. 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
--- NOTE | 2017-10-26 23:24 | PN ---
DATE: 10/25/2017 This is a late entry 10/25/2017 covers elements not covered in my initial note of 10/25/2017. I met with the patient evening of 10/25/2017. The patient slept just 2 hours previous evening. He is obsessed with his CPAP machine, previous evening was manic, grandiose, agitated, received Zyprexa Zydis and trazodone, gets "grumpy" regarding his medications. Atarax and Tylenol, ____ seems to help. He has been hyperverbal. REVIEW OF SYSTEMS: Ambulation impaired, in wheelchair. No CV, , pulmonary, eye, ENT system symptoms on review. Reliability poor. MENTAL STATUS EXAM: Oriented to himself. Insight, judgment, recent and remote memory, attention, concentration, fund of knowledge poor, consistent with his diagnosis mentioned in my initial note. PLAN: Increase trazodone from 50 mg at bedtime to 100 mg at bedtime, march repeat x 1 p.r.n. insomnia. Rest continue unchanged per initial note. PATI CORCORAN MD DR: JUAQUIN/aristides JOB#: [id number] / [id number]
--- NOTE | 2017-10-27 01:02 | PN ---
DATE: 10/24/2017 This late entry 10/24/2017 covers elements not covered in my initial note 10/24/2017. I met with the patient evening of 10/24/2017. He slept 4 hours previous evening, has been quite grandiose, talking about that he knew President Kalina, that he has had 2 wives and that he has talked to Kalina and knew him personally. He is oriented to the ____. Remains quite grandiose, but nursing staff report has been "annoying others." Received Zyprexa at 1930 the day before. REVIEW OF SYSTEMS: Ambulation impaired. No CV, , pulmonary, eye system symptoms on review. He is in a wheelchair. MENTAL STATUS EXAM: Oriented to himself. Insight, judgment, recent and remote memory, attention, concentration, fund of knowledge poor, consistent with his diagnosis, mentioned in my initial note. PLAN: Start Depakote as a mood stabilizer, Depakote Sprinkles 125 mg 3 times a day. Check CBC, CMP, valproic acid level in 3 days. Increase the Zyprexa p.r.n. ____ mg q.2 hours p.r.n. psychosis, agitation, max 15 mg in 24 hours. Trazodone 50 mg at bedtime scheduled, march repeat x 1 p.r.n. for insomnia. PATI CORCORAN MD DR: JUAQUIN/aristides JOB#: [id number] / [id number]
--- NOTE | 2017-10-27 23:59 | DS ---
DATE OF DISCHARGE: 10/26/2017 DISCHARGE SUMMARY/PSYCHIATRIC PROGRESS NOTE This late entry date of service 10/26/2017 covers elements not covered in my initial note 10/26/2017. REASON FOR ADMISSION: Please refer to the admission history for details. Briefly, the patient is an 86-year-old male referred to us from [address] [place] [address] after he stabilized for his raised troponin, which was detected in the Emergency Room at [facility], where he presented from [facility], referred by his primary care physician on account of increased agitation, delusions, marked mood lability and suicidal ideation. The patient had tied this pajama pants string around his neck, was refusing medications, depressed, disruptive in his behavior, agitated, hypomanic. He had failed outpatient psychiatric interventions. SIGNIFICANT FINDINGS AND CLINICAL COURSE: Following admission, the patient was seen daily individually by myself from a psychiatric standpoint. Medical followup per Dr. Quinones/Dr. [place]. He was extremely hyperverbal, loud, disruptive, agitated with marked mood lability. Adjustments were made in his psychotropics and at the time of discharge, he was on Aricept 10 mg a day, Zyprexa and Vistaril p.r.n., Depakote Sprinkle 125 mg 3 times a day, and trazodone 100 mg at bedtime, march repeat x 1 for insomnia. At this stage, he was found to have significant hematuria on the morning of 10/26/2017 and was transferred to the ICU per Dr. Quinones. CONDITION AT DISCHARGE: Some improvement from a psychiatric standpoint. Prior to discharge, ambulation impaired, in wheelchair. No CV, , pulmonary, eye, ENT system symptoms on review. Reliability poor. MENTAL STATUS EXAM: Oriented to himself. Insight, judgment, recent and remote memory, attention, concentration, fund of knowledge poor, consistent with his diagnosis. FINAL DIAGNOSES: Major neurocognitive disorder, Alzheimer, vascular with depression, delusion, behavioral disturbance; anxiety disorder, unspecified; impulse control disorder, unspecified; hematuria. Rest of the diagnoses unchanged from admission. DISCHARGE MEDICATIONS: Please refer to the MRAD. We would be happy to reassess the need for him to return back to our unit once he is medically stable if psychiatric problems, mood lability, aggression, suicidality persist. Time for discharge day management greater than 30 minutes. MAN Nehemias CORCORAN MD DR: Shirley JOB#: [id number] / [id number]
== END 2017-10-26 07:09 | disposition short-term general hospital (02) | DRG 884 ==
LOC: GEROPSY 15:35
PROVIDERS: ADMIT Psychiatry & Neurology Psychiatry; ATTEND Psychiatry & Neurology Psychiatry
DX: F01.51 Vascular dementia, unspecified severity, with behavioral disturbance (principal); E11.22 Type 2 diabetes mellitus with diabetic chronic kidney disease; E11.40 Type 2 diabetes mellitus with diabetic neuropathy, unspecified; F33.9 Major depressive disorder, recurrent, unspecified; R45.851 Suicidal ideations; F02.81 Dementia in other diseases classified elsewhere, unspecified severity, with behavioral disturbance; G30.9 Alzheimer's disease, unspecified; E78.5 Hyperlipidemia, unspecified; F22 Delusional disorders; F41.9 Anxiety disorder, unspecified; F63.9 Impulse disorder, unspecified; G47.00 Insomnia, unspecified; R31.9 Hematuria, unspecified; H26.9 Unspecified cataract; M19.90 Unspecified osteoarthritis, unspecified site; G47.33 Obstructive sleep apnea (adult) (pediatric); I12.9 Hypertensive chronic kidney disease with stage 1 through stage 4 chronic kidney disease, or unspecified chronic kidney disease; N18.9 Chronic kidney disease, unspecified; N40.0 Benign prostatic hyperplasia without lower urinary tract symptoms; Z79.899 Other long term (current) drug therapy; Z88.6 Allergy status to analgesic agent; Z88.1 Allergy status to other antibiotic agents; Z88.8 Allergy status to other drugs, medicaments and biological substances
CPT/HCPCS: 36415; 80053; 80061; 82306; 82607; 82947; 83036; 83540; 83550; 84436; 84443; 84480; 85025; 85610; 85730; 86592; 86593; 97110; 97530

== ENCOUNTER 2017-10-26 07:13 | Inpatient (IN) | payer MEDICARE ==
[~2017-10-26] VITALS: Ht 172.7 cm; Wt 96.6 kg
[2017-10-26] VITALS (15 sets, daily range): BP systolic 93–160; BP diastolic 46–84
[~2017-10-26 07:13] MED LIST changes: +ACET325T9 PO; +ASPI-612 PO; +DIVA125C PO; +HYDR25TA PO; +MAG355OR17 PO; +MAGN2400 PO; +METH29OI TP; +NITR1OIN TD; +OLAN2.5T3 PO; +TRAZ-90 PO
[2017-10-26] MEDS ORDERED: 0.9 % SODIUM CHLORIDE 10 ML DISP.SYRIN. IV PRN (08:00)
[2017-10-26] MEDS ORDERED: ONDANSETRON PF 4 MG/2 ML VIAL. IV PRN (08:00)
[2017-10-26] MEDS ORDERED: MAGNESIUM HYDROXIDE 2,400 MG/30 ML ORAL.SUSP. PO PRN ×2 (08:00→09:15)
[2017-10-26] MEDS ORDERED: OLANZapine 2.5 MG TABLET PO PRN (08:45)
[2017-10-26] MEDS ORDERED: traZODone 100 MG TABLET. PO PRN (08:45)
[2017-10-26] MEDS ORDERED: ACETAMINOPHEN 325 MG TABLET PO PRN (08:45)
[2017-10-26] MEDS ORDERED: METHYL SALICYLATE/MENTHOL TOPICAL OINTMENT 29GM TUBE. TP PRN (08:45)
[2017-10-26] MEDS: LISINOPRIL 20 MG TABLET PO SCH (09:00)
[2017-10-26] MEDS ORDERED: MAG HYDROX/AL HYDROX/SIMETH 30 ML ORAL.SUSP PO PRN (09:15)
[2017-10-26 09:27] LABS: BACTERIA,URINE 0 /HPF (0-FEW); BILIRUBIN,URINE NEG (NEG); CLARITY,URINE BLOODY; COLOR,URINE RED; GLUCOSE,URINE NEG (NEG); NITRITE,URINE NEG (NEG); RBC,URINE TNTC /HPF (0-2); SQUAMOUS EPITHELIAL CELL,UR FEW /LPF; UROBILINOGEN,URINE 0.2 mg/dL (0.2 mg/dL)
--- NOTE | 2017-10-26 10:27 | RAD ---
EXAM: CT abdomen and pelvis without contrast. HISTORY: Gross hematuria. TECHNIQUE: Computed tomographic images of the abdomen and pelvis are obtained without the use of intravenous contrast.. Multiplanar reformatting was performed. One or more of the following individualized dose reduction techniques were utilized for this examination: 1. Automated exposure control 2. Adjustment of the mA and/or kV according to patient size 3. Use of iterative reconstruction technique COMPARISON: None. FINDINGS: Visualized lung bases demonstrate no acute process. Detailed evaluation of intra-abdominal and pelvic organs and vascular structures is limited given lack of IV contrast. There is also some beam hardening artifact through the abdomen secondary to overlying wires present. The liver demonstrates no focal abnormality. Gallbladder is mildly distended however no calcified gallstones, wall thickening or pericholecystic fluid is seen. Spleen is unremarkable. The pancreas demonstrates no focal abnormality as visualized. The adrenal glands are unremarkable. A a few round hypodense lesions are seen within both kidneys, within the posterior inferior right kidney and within the anterior superior and inferior anterior left kidney, incompletely characterized. No right hydronephrosis or nephrolithiasis is present. Mild to moderate left hydronephrosis is present. No left nephrolithiasis is present. Mild bilateral perinephric stranding is present. There is also left sided hydroureter present. No ureteral calculi are seen. The urinary bladder is decompressed about a Escalante catheter and therefore not well evaluated. Circumferential urinary bladder wall thickening is seen. Intraluminal air is present, likely secondary to catheterization. The GI tract demonstrates no evidence of obstruction. Significant colonic diverticulosis is present without evidence to suggest acute inflammation. Appendix is normal in caliber in the right lower quadrant. No intra-abdominal or pelvic free fluid, free air or significant lymphadenopathy is seen. Aorta appears normal in caliber with scattered atherosclerotic calcifications present. Overlying soft tissues and visualized osseous structures demonstrate no acute or suspicious finding. Significant degenerative changes are present throughout the spine, with minimal retrolisthesis of L2 on L3.. IMPRESSION: 1. Mild to moderate left hydronephrosis and hydroureter are present. No ureterolithiasis is seen. The urinary bladder is not well evaluated as it is decompressed about a Escalante catheter, although diffuse wall thickening is present. Left-sided hydronephrosis and hydroureter may be secondary to distal obstruction at the level of the urinary bladder, cystoscopy could provide better evaluation of the urinary bladder to evaluate for possible malignancy, particularly given history of hematuria. Recently passed stone resulting in obstruction and hematuria is felt less likely, given no additional urolithiasis seen. 2. Bilateral renal hypodensities, incompletely characterized. These could be better evaluated with nonemergent ultrasound. 3. Other incidental findings detailed above, including diverticulosis.
[2017-10-26] MEDS: DIVALPROEX 125 MG CAP.SPRINK PO SCH ×3 (11:58→17:30)
[2017-10-26] MEDS: glipiZIDE 5 MG TABLET PO SCH ×2 (11:58→20:33)
--- NOTE | 2017-10-26 12:25 | PDOC1 ---
HISTORY & PHYSICAL DATE OF ADMISSION: 10/26/17 HPI: HPI: Reason for admission: Gross hematuria HPI: This is an 86-year-old white male who was transferred down to the ICU from the [place] [facility] unit at [facility]. During foam caster rounds when they went to change him a found a large amount of what appeared to be bloody urine in his brief. He was then straight cathetered and was found to have 800 mL of bloody urine. He was then transferred down to the ICU. PROBLEMS: Past medical history includes obstructive sleep apnea, type 2 diabetes, neurocognitive impairment, hypertension, depression, and chronic pain he also has an elevated [facility] He also has a history of BPH and pancytopenia. Psychiatric history: The the medical floor where he stayed for one day because of hyponatremia and thrombocytopenia. These were found to be not new problems .Patient was admitted to the senior behavioral unit on for the original reason of cognitive impairment with behavior disturbance. He had recently been admitted to a nursing facility on October 08 and has not adjusted well at all. He threatened others and as well as himself and was trying to hang himself with pajama strings. He had his medications adjusted and was doing fairly well. 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 Recently moved to [place] on 10[place]07/17 Daughter in the area. PFMH: unknown ALLERGIES: Amlodipine, 5-FU, iodine, lovastatin, metoprolol, rosuvastatin, simvastatin Allergies Coded Allergies Type Severity Reaction Last Updated Verified amlodipine Allergy Intermediate 10/23/17 Yes fluorouracil Allergy Intermediate 10/23/17 Yes iodine Allergy Intermediate 10/23/17 Yes lovastatin Allergy Intermediate 10/23/17 Yes metoprolol Allergy Intermediate 10/23/17 Yes rosuvastatin Allergy Intermediate 10/23/17 Yes simvastatin Allergy Intermediate 10/23/17 Yes MEDS: MEDICATIONS: Current Medications Medications (Trade) Dose Ordered Sig/Chelo Start Time Stop Time Status Last Admin Dose Admin Acetaminophen (Tylenol) 650 mg PRN Q6HRS PRN 10/26/17 08:45 Al Hydroxide/Mg Hydroxide (Mylanta Plus Xs) 15 ml PRN AFTMEALHC PRN 10/26/17 09:15 Divalproex Sodium (Depakote Sprinkles) 125 mg TID@0900,1400,1700 10/26/17 09:00 10/26/17 11:58 125 MG Donepezil HCl (Aricept) 10 mg HS 10/26/17 21:00 Gabapentin (Neurontin) 600 mg QHS 10/26/17 21:00 Glipizide (Glucotrol) 2.5 mg BID 10/26/17 09:00 10/26/17 11:58 2.5 MG Hydroxyzine HCl (Atarax) 25 mg PRN Q2HR PRN 10/26/17 08:45 Lisinopril (Prinivil) 40 mg DAILY 10/26/17 09:00 Magnesium Hydroxide (Milk Of Magnesia) 2,400 mg PRN QHS PRN 10/26/17 09:15 Multi-Ingredient Ointment (Analgesic [place]) 1 deven PRN QID PRN 10/26/17 08:45 Olanzapine (ZyPREXA) 5 mg PRN Q2HR PRN 10/26/17 08:45 Ondansetron HCl (Zofran) 4 mg PRN Q8HRS PRN 10/26/17 08:00 Sodium Chloride (Normal Saline Flush) 3 ml PRN DAILY PRN 10/26/17 08:00 Trazodone HCl (Desyrel) 100 mg QHS 10/26/17 21:00 VITALS: Vital Signs Date Time Temp Pulse Resp B/P (MAP) Pulse Ox O2 Delivery O2 Flow Rate FiO2 10/26/17 11:37 58 14 121/64 (83) 100 Nasal Cannula 2.0 LABS: Laboratory Tests Test 10/26/17 06:47 10/26/17 08:50 10/26/17 09:05 Magnesium Level 2.0 mg/dL (1.8-2.4) Urine Collection Type Unknown Urine Color Red Urine Clarity Bloody Urine pH 6.5 Urine Specific [place] 1.020 Urine Protein >100 mg/dl (NEG-TRACE) Urine Glucose (UA) Neg mg/dL (NEG) Urine Ketones (Stick) Neg mg/dL (NEG) Urine Blood Large (NEG) Urine Nitrite Neg (NEG) Urine Bilirubin Neg (NEG) Urine Urobilinogen Dipstick 0.2 mg/dL (0.2 mg/dL) Urine Leukocyte Esterase Neg (NEG) Urine RBC Tntc /HPF (0-2) Urine WBC 1-4 /HPF (0-4) Urine Squamous Epithelial Cells Few /LPF Urine Bacteria 0 /HPF (0-FEW) Urine Mucus Slight /LPF Lactic Acid Level 1.0 mmol/L (0.4-2.0) IMAGES: RESULTS: EXAM: CT abdomen and pelvis without contrast. HISTORY: Gross hematuria. TECHNIQUE: Computed tomographic images of the abdomen and pelvis are obtained without the use of intravenous contrast.. Multiplanar reformatting was performed. One or more of the following individualized dose reduction techniques were utilized for this examination: 1. Automated exposure control 2. Adjustment of the mA and/or kV according to patient size 3. Use of iterative reconstruction technique COMPARISON: None. FINDINGS: Visualized lung bases demonstrate no acute process. Detailed evaluation of intra-abdominal and pelvic organs and vascular structures is limited given lack of IV contrast. There is also some beam hardening artifact through the abdomen secondary to overlying wires present. The liver demonstrates no focal abnormality. Gallbladder is mildly distended however no calcified gallstones, wall thickening or pericholecystic fluid is seen. Spleen is unremarkable. The pancreas demonstrates no focal abnormality as visualized. The adrenal glands are unremarkable. A a few round hypodense lesions are seen within both kidneys, within the posterior inferior right kidney and within the anterior superior and inferior anterior left kidney, incompletely characterized. No right hydronephrosis or nephrolithiasis is present. Mild to moderate left hydronephrosis is present. No left nephrolithiasis is present. Mild bilateral perinephric stranding is present. There is also left sided hydroureter present. No ureteral calculi are seen. The urinary bladder is decompressed about a Escalante catheter and therefore not well evaluated. Circumferential urinary bladder wall thickening is seen. Intraluminal air is present, likely secondary to catheterization. The GI tract demonstrates no evidence of obstruction. Significant colonic diverticulosis is present without evidence to suggest acute inflammation. Appendix is normal in caliber in the right lower quadrant. No intra-abdominal or pelvic free fluid, free air or significant lymphadenopathy is seen. Aorta appears normal in caliber with scattered atherosclerotic calcifications present. Overlying soft tissues and visualized osseous structures demonstrate no acute or suspicious finding. Significant degenerative changes are present throughout the spine, with minimal retrolisthesis of L2 on L3.. IMPRESSION: 1. Mild to moderate left hydronephrosis and hydroureter are present. No ureterolithiasis is seen. The urinary bladder is not well evaluated as it is decompressed about a Escalante catheter, although diffuse wall thickening is present. Left-sided hydronephrosis and hydroureter may be secondary to distal obstruction at the level of the urinary bladder, cystoscopy could provide better evaluation of the urinary bladder to evaluate for possible malignancy, particularly given history of hematuria. Recently passed stone resulting in obstruction and hematuria is felt less likely, given no additional urolithiasis seen. 2. Bilateral renal hypodensities, incompletely characterized. These could be better evaluated with nonemergent ultrasound. 3. Other incidental findings detailed above, including diverticulosis. DICTATED AND SIGNED BY: XIOMARA YOUNG MD DATE: 10/26/17 1014 CC: KIMBERLEE GONZALEZ MD; FRANCISCO CASTRO DO; NON,STAFF ~ ROS: unable to verbalize PHYSICAL EXAM: Gen.: 86-year-old in no acute distress Height 68 inches weight 213 pounds BMI 32.4 Face slightly flushed. Moderately hard of hearing. His eyes were clear. Nose was patent. Throat tongue dry. Large tongue relative to his small posterior pharynx. Short neck. Lungs are clear in all tran. Cardiovascular was regular rhythm and rate with a 2/6 systolic murmur rate is bradycardic her a few PVCs noted on the monitor. Abdomen was soft bowel sounds were positive he actually started laughing as it was more tickling sensation to him. No masses were palpated Escalante catheter in place draining draining grossly bloody urine. Sharri' s with ankle edema and 1+ edema. This is not new. Neurologically he is sleepy but arousable Akee can answer questions appropriately. Did not take him through cranial nerve exam. This was done previously and was essentially normal except for being hard of hearing. Skin with externsive actinic keratoses on the scalp and arms. ASSESSMENT/PLAN ASSESSMENT: #1 gross hematuria with left hydronephrosis and hydroureter #2 pancytopenia with thrombocytopenia present on admission #3 neurocognitive impairment with previous issue of suicidal ideation #4 hypertension 5 type 2 diabetes well controlled 6. Obstructive sleep apneauses CPAP 7 depression #8 actinic keratoses 9 recent brief stay on the medical floor on October 21 for elevated troponin and ME was ruled out PLAN: Transfer to [facility] for urologic care and higher level of care. Patient is medically stable for transfer. FRANCISCO CASTRO DO Oct 26, 2017 12:25
[2017-10-26 13:30] LABS: BASO % 1 % (0-3); EOS % 1 % (0-3); HEMOGLOBIN 13.7 g/dL (13.0-17.5); LYMPH # 0.7 x10^3/uL (1.0-4.8); LYMPH % 21 % (24-48); MEAN CORPUSCULAR HEMOGLOBIN 32 pg (25-35); MEAN CORPUSCULAR HGB CONC 34 g/dL (31-37); MEAN CORPUSCULAR VOLUME 97 fL (79-100); MONO # 0.6 x10^3/uL (0.0-1.1); MONO % 18 % (0-9); NEUT # 1.9 x10^3uL (1.8-7.7); NEUT % 59 % (31-73); PLATELET COUNT 78 x10^3/uL (140-400); RED BLOOD COUNT 4.24 x10^6/uL (4.30-5.70); RED CELL DISTRIBUTION WIDTH 13.7 % (11.5-14.5); WHITE BLOOD COUNT 3.2 x10^3/uL (4.0-11.0)
[2017-10-26] MEDS ORDERED: traZODone 100 MG TABLET. PO SCH (21:00)
[2017-10-26] MEDS ORDERED: DONEPEZIL HCL 10 MG TABLET PO SCH (21:00)
[2017-10-26] MEDS ORDERED: GABAPENTIN 300 MG CAPSULE. PO SCH (21:00)
[2017-10-26] MEDS: hydrOXYzine HCL 25 MG TABLET PO PRN (21:04)
[2017-10-27] VITALS (10 sets, daily range): BP systolic 104–154; BP diastolic 58–108
[2017-10-27] MEDS: hydrOXYzine HCL 25 MG TABLET PO PRN ×3 (01:53→14:12)
[2017-10-27] MEDS ORDERED: IV RINGERS SOLUTION,LACTATED 1,000 ML IV SCH (02:00)
[2017-10-27] MEDS ORDERED: LORazepam 2 MG/ML VIAL IV ONE (04:15)
[2017-10-27 06:26] LABS: CALCIUM 8.6 mg/dL (8.5-10.1); CREATININE 1.3 mg/dL (0.7-1.3); GFR 52.3; POTASSIUM 4.4 mmol/L (3.5-5.1)
[2017-10-27 06:30] LABS: BASO % 0 % (0-3); EOS % 1 % (0-3); HEMATOCRIT 38.2 % (39.0-53.0); HEMOGLOBIN 12.8 g/dL (13.0-17.5); LYMPH # 0.8 x10^3/uL (1.0-4.8); LYMPH % 24 % (24-48); MEAN CORPUSCULAR HEMOGLOBIN 32 pg (25-35); MEAN CORPUSCULAR HGB CONC 33 g/dL (31-37); MEAN CORPUSCULAR VOLUME 97 fL (79-100); MONO # 0.7 x10^3/uL (0.0-1.1); MONO % 21 % (0-9); NEUT # 1.8 x10^3uL (1.8-7.7); NEUT % 53 % (31-73); PLATELET COUNT 78 x10^3/uL (140-400); RED BLOOD COUNT 3.95 x10^6/uL (4.30-5.70); WHITE BLOOD COUNT 3.5 x10^3/uL (4.0-11.0)
--- NOTE | 2017-10-27 09:59 | HP ---
ADMIT DATE: 10/26/2017 REASON FOR TRANSFER FROM THE [facility]: An admission to the ICU, gross hematuria. HISTORY OF PRESENT ILLNESS: This is an 86-year-old male who was transferred down from the [facility] Unit where he has been since 10/23. He previously had short stay on on the medical floor prior to going up to the [facility] because of an elevated troponin level and a mild pancytopenia. Evidently these are not new. This admission down to the ICU is due to the fact that this morning when they woke him up to change him, there was a large amount of what appeared to be bloody urine in his brief. He had a distended bladder and 800 units was straight cathed and was bloody. PAST MEDICAL HISTORY: He does have a history of BPH. He also has a history of an elevated PSA, the last being 15.10 on 10/17. [facility] goes over 20. Other problems include dementia with behavior disturbance, which was the original reason for him being admitted to the [facility] Behavior Unit. He had been placed in a nursing facility and was not adjusting well and had become quite violent at the retirement and also threatened to kill himself. Other medical problems include pancytopenia, type 2 diabetes, hypertension, obstructive sleep apnea, which he does use a CPAP. ALLERGIES: AMLODIPINE, 5-FU IODINE, LOVASTATIN, METOPROLOL SUCCINATE, ROSUVASTATIN, SIMVASTATIN, and also chronic pain. PAST SURGICAL HISTORY: Had a brain tumor removed 30-40 years ago and had some type of repair done on the third finger of his left hand, which had been caught in a corn machine as a child. MEDICATIONS: Reviewed and are available on the MAR. 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 Is a of the [place] [employer]. REVIEW OF SYSTEMS: The patient is confused and unable to answer if anything in particular is bothering him. He has just been transferred down from the [facility] Behavior Unit. OBJECTIVE: VITAL SIGNS: Blood pressure 139/61, pulse 52, respirations 14, pulse ox 98% on 2 liters. GENERAL: An 86-year-old in no acute distress. He is easily arousable, but still quite sleepy. Noted that without the CPAP, he does become bradycardic and slightly hypoxic. He was placed on his side and this resolved. He is slightly hard of hearing. HEENT: Her eyes were clear. Tongue was dry. Large tongue relative to his posterior pharynx. NECK: Supple. LUNGS: Clear. CARDIOVASCULAR: Slow rhythm and rate, 2/6 systolic murmur. ABDOMEN: Soft, bowel sounds are positive. Nontender, almost ticklish, though exam was done twice, could not produce any tenderness. The Escalante catheter is in place draining bloody urine very bloody bright appearing urine. EXTREMITIES: With ankle edema. LABORATORY DATA: UA specific gravity 1.020, clarity is bloody, large amount of blood, too numerous to count red cells, 1-4 white cells, negative nitrites, negative leukocyte esterase. Chemistry: Lactic acid was 1. His magnesium was 2. Labs from upstairs prior to coming down, his white count is 2.9; hemoglobin 13.4; hematocrit 40.1; platelet count 81,000 that is not new. His sodium is 146, chloride 109, creatinine is 1.5, GFR 44.[address] of the abdomen and pelvis is pending. ASSESSMENT: 1. Spontaneous hematuria, questionable etiology. 2. Dementia with behavior disturbance. 3. Pancytopenia with leukopenia and thrombocytopenia. 4. Previous history of actinic keratoses. 5. Bradycardia. 6. History of elevated prostate specific antigen and benign prostatic hypertrophy. PLAN: Await the results of the CAT scan. Did discuss his case with urologist, Dr. Culp, who is not available to come in. They did recommend the CAT scan and the irrigation, so that the urinary tract is not blocked off and to make sure that he does not have an infection. It does not appear that he has an infection. I anticipate that after waiting for the abdomen and pelvis CT results, we will probably transfer him if bleeding does not stop. FRANCISCO CASTRO DO DR: DIANE/aristides JOB#: [id number] / [id number]
[2017-10-27] MEDS: DIVALPROEX 125 MG CAP.SPRINK PO SCH ×2 (12:25→14:12)
[2017-10-27] MEDS: glipiZIDE 5 MG TABLET PO SCH (12:26)
[2017-10-27] MEDS: LISINOPRIL 20 MG TABLET PO SCH (12:35)
--- NOTE | 2017-10-27 22:16 | DS ---
DATE OF DISCHARGE: 10/27/2017 HOSPITAL COURSE: The patient is an 86-year-old male patient who apparently is a resident at [facility] in [place], [place], and who was brought to the Emergency Room of [facility] to be admitted to [facility] on 10/21/2017. Apparently, he moved there only on 10/23/2017. Since he moved there, he apparently has threatened to harm himself with suicidal ideation. He tried put his PJ strings around his neck and wanted to poison himself. In other words, he has severe adjustment problem going into assisted living facility. However, initial evaluation showed that he has mildly elevated CK and also elevated troponin as well as pancytopenia and was admitted to [address] [place] [address] for medical stabilization. He was seen in consultation by the Cardiology team and was diagnosed with non-ST segment elevation myocardial infarction, and his left ventricular function and wall motion were normal by echocardiogram, and on stabilization, he was transferred to [facility] for inpatient psychiatric stabilization 10/23/2017. However, he was transferred back to [address] [place] [address] as he developed gross hematuria. He has had a CT scan of the abdomen and pelvis, which basically showed that he has mild to moderate left-sided hydronephrosis and hydroureter with no ureterolithiasis seen. The urinary bladder is not well evaluated as it is decompressed with a Escalante catheter, although diffuse wall thickening is present, had left-sided hydronephrosis, hydroureter may be secondary to distal obstruction at the level of the urinary bladder. Cystoscopy could provide better evaluation of the urinary bladder to evaluate for possible malignancy, particularly given history of hematuria. Recently passed stone resulting in obstruction, hematuria is felt less likely given no additional urolithiasis seen. The patient has also bilateral renal hypodensities, incompletely characterized. This could be better evaluated with an emergent ultrasound. Given that we have no urologist available in either here nor at [facility], the [facility] crew was contacted and they kindly accepted him for transfer. PHYSICAL EXAMINATION: GENERAL: When I saw him this afternoon, he was resting slightly propped up in bed, in no apparent distress, slightly pale, but no jaundice, cyanosis or thyromegaly. No jugular venous distention. No lower limb edema. VITAL SIGNS: Her heart rate was 62, blood pressure 137/75, temperature was 97.3, respiratory rate was 14 and oxygen saturation was 99% on 2 liters of oxygen. HEAD, EYES, EARS, NOSE AND THROAT: Normocephalic, atraumatic. NECK: Supple. HEART: Showed normal first and second sounds. No gallop, rub or murmur. CHEST: Clear to auscultation. No crepitation or rhonchi. ABDOMEN: Distended, soft, nontender. No guarding or rigidity. No organomegaly. Hernial orifice intact. Bowel sounds normal. NEUROLOGIC: He was demented with some behavioral disturbances; however, all cranial nerves are intact. He moves extremities without difficulty. He is mostly bedbound, chair bound. He has a triple lumen catheter, has continuous bladder irrigation. His intake was 0, output was 2425. LABORATORY DATA: Her lab work this morning showed a white cell count of 3500, hemoglobin 12.8, hematocrit 38.2, MCV 97 and platelet count of 78,000. His chemistry showed a serum sodium of 145, potassium 4.4, chloride 110, bicarbonate 30, anion gap of 5, BUN 23, creatinine 1.3, estimated GFR was 52 mL per minute. His glucose 100, lactic acid 1. Calcium was 8.6, magnesium was 2. Urinalysis showed the urine was red, cloudy with a pH of 6.5, specific gravity of 1.020. There was large amount of protein, negative for glucose, ketones, large amount of blood, negative for nitrite, negative leukocyte esterase. There was too numerous to count rbc's, 1-4 wbc's, no bacteria. His imaging studies, as I stated, he has a left-sided hydronephrosis and hydroureter. He was discharged to [facility] to continue on Tylenol 650 mg every 4 hours as needed, divalproex 125 mg 3 times a day, Aricept 10 mg once a day, fosinopril sodium 40 mg once a day, gabapentin 600 mg at bedtime, glipizide 2.5 mg twice a day, hydroxyzine 25 mg every 2 hours as needed for anxiety, Mylanta 15 mL as needed after meals, magnesium oxide for milk of magnesia 30 mL p.o. daily p.r.n. for constipation, olanzapine or Zyprexa __ mg every 2 hours as needed for psychosis, trazodone 100 mg at bedtime and trazodone 100 mg as needed for insomnia. I held his aspirin. FINAL DISCHARGE DIAGNOSES: 1. Spontaneous painless hematuria. 2. Pancytopenia with a leukopenia and thrombocytopenia, history of elevated prostate specific antigen and benign prostatic hypertrophy, hypertension, dementia with behavioral disorder. SURY VELAZQUEZ MD DR: LUISANA/aristides JOB#: [id number] / [id number]
--- NOTE | 2017-10-28 12:09 | EKG ---
[facility] [address] [place] [address] Test Date: 2017-10-26 Test Time: 10:26:05 Pat Name: IVETH GALVAN Department: Room: [place] [address] Gender: M Mc Kay Stitcher: : 1930 Requested By: FRANCISCO CASTRO Order Number: [id number] Reading MD: Measurements Intervals [place] Rate: P: WI: QRS: QRSD: T: QT: QTc: Interpretive Statements
== END 2017-10-27 15:05 | disposition short-term general hospital (02) | DRG 693 ==
LOC: ICU 07:13
PROVIDERS: ADMIT Family Medicine; ATTEND Family Medicine
PROC: 5A09357 Assistance with Respiratory Ventilation, Less than 24 Consecutive Hours, Continuous Positive Airway Pressure (ICD-10-PCS; principal; 2017-10-27)
DX: N13.30 Unspecified hydronephrosis (principal); I21.4 Non-ST elevation (NSTEMI) myocardial infarction; D61.818 Other pancytopenia; F03.91 Unspecified dementia, unspecified severity, with behavioral disturbance; R45.851 Suicidal ideations; R31.0 Gross hematuria; E11.9 Type 2 diabetes mellitus without complications; F32.9 Major depressive disorder, single episode, unspecified; G47.33 Obstructive sleep apnea (adult) (pediatric); I10 Essential (primary) hypertension; K57.30 Diverticulosis of large intestine without perforation or abscess without bleeding; K59.00 Constipation, unspecified; G47.00 Insomnia, unspecified; L57.0 Actinic keratosis; N40.0 Benign prostatic hyperplasia without lower urinary tract symptoms; G89.29 Other chronic pain; Z88.6 Allergy status to analgesic agent; Z88.1 Allergy status to other antibiotic agents; Z88.8 Allergy status to other drugs, medicaments and biological substances; Z74.01 Bed confinement status
CPT/HCPCS: 36415; 74176; 80048; 81001; 82947; 83605; 83735; 85025; 93005; J2060